=== PATIENT | male | born 1955 | race Caucasian/White ===

== ENCOUNTER → 2018-02-10 10:21 | Outpatient (CLI) | payer OTHER, SELFPAY ==
[2018-02-10 11:13] LABS: Add Manual Diff / Slide Review NO; Basophils Percent Auto 0.7 % (0-2); Eosinophils Percent Auto 0.9 % (2-4); Hematocrit 44.7 % (41-53); Hemoglobin 15.3 g/dL (13.5-17.5); Lymphocytes Percent Auto 15.8 % (25-40); Mean Corpuscular HGB Conc 34.2 % (30-36); Mean Corpuscular Volume 87.6 fL (80-100); Monocytes Percent Auto 7.1 % (3-14); Neutrophils Absolute Auto 7800 /uL (3000-5900); Neutrophils Percent Auto 75.5 % (50-75); Platelet Count 347 X10^3/uL (150-400); Red Cell Distribution Width 13.4 % (11.6-14.8); White Blood Cell Count 10.3 X10^3/uL (4.5-11.0)
[2018-02-10 11:17] LABS: BUN Creatinine Ratio 27.5 (6-22); Blood Urea Nitrogen 22 mg/dL (9-20); Calcium 9.2 mg/dL (8.4-10.2); Carbon Dioxide 27 mmol/L (22-32); Chloride 105 mmol/L (98-107); Estimated Glomerular Filt Rate > 60.0 mL/min (>60); Glucose 157 mg/dL (80-110); HEMOLYSIS < 15 (0-50); Potassium 4.3 mmol/L (3.4-5.1); Sodium 142 mmol/L (137-145)
== END ==
PROVIDERS: Visit Provider Physician Assistant Surgical
DX: Z01.818 Encounter for other preprocedural examination (principal)
CPT/HCPCS: 36415; 80048; 85025; 93005

== ENCOUNTER 2018-02-16 11:46 | Day surgery (SDC) | payer OTHER, SELFPAY ==
[2018-02-11 09:59] VITALS: BMI 26.4
[2018-02-16] VITALS (7 sets, daily range): BP systolic 106–130; BP diastolic 67–86; PULSE 64–74; RESP 10–16; TEMP 36.6–36.7; O2SAT 96–99; BMI 26.4
[2018-02-16] MEDS: LACTATED RINGERS 1,000 ML 42 ML IV (13:51)
[2018-02-16] MEDS: CEFAZOLIN 2 GM/100 ML FROZ.PIGGY IV (13:56)
--- NOTE | 2018-02-16 14:21 | SUR.OPER ---
Supine on padded OR bed, head on pillow, right arm secured on padded arm boards at <90 degrees abduction left arm on arm table under control of surgeon, legs uncrossed, safety belt at thigh, tape over blanket over lower legs.
[2018-02-16] MEDS: BUPIVACAINE 0.25% W/ EPI VIAL 50 ML INJ (14:33)
--- NOTE | 2018-02-16 14:57 | PM.OP.1 ---
Operative Date/Time/Diagnoses Date of procedure: 02/16/18 Time of procedure: 13:57 Pre-op diagnosis: Left septic bursitis Post-op diagnosis: same Procedure & Clinicians Procedure: 1. Left elbow olecranon bursa excision 2. 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 He has been on oral anbitiotics with no improvement. He feels ill and his elbow pain and swelling is causing difficulty performing activity of daily living. After discussing risks and benefits of surgery, patient elected to proceed with surgery treatment. Surgeon: Debra Stratton Click Yes if Unassisted: Yes Anesthesia Type: General Operative Notes Closure Type: primary Specimen(s): none sent Estimated Blood Loss (mL): 5 Blood products transfused: none Tourniquet time (min): 30 Procedure in detail: After patient was consented of risks and benefits of surgery, informed consent was obtained and placed in the chart. Patient was taken to the operating room. Prophylactic antibiotic was given less than half our prior to skin incision. A tourniquet was placed on patient's left upper arm. Patient's left arm was prepped and draped in sterile fashion. Time-out was performed at this time. Patient's left arm was elevated for 1 min the tourniquet was inflated to 250 mm Hg. Marking pen was used to zach out a 2 in incision over the left olecranon. The incision was made from proximal to the olecranon to distal down the arm away from the ulnar aspect of the elbow. Using combination of scalpel and Metzenbaum scissor, the olecranon bursa was dissected and isolated. The bursa was significantly inflated due to the infectious nature. Incision was made over the bursa and significant amount of cloudy yellowish fluid was aspirated from the wound total approximately 150 cc. The culture was taken from the olecranon bursa. The bursa was excised by removing all of its capsule from over the olecranon and from within the soft tissue. At this time was identified the chronically inflamed bursa eroded parts of the olecranon. The structural integrity of the olecranon is still intact after careful inspection. Leksell rongeur and curette was used to debride the wound as well as the olecranon bone. Small portions of unhealthy appearing soft tissue was well as bony tissue was excised from the wound in the process of debridement. After debridement was completed, the wound was irrigated copiously with sterile normal saline. At this time the wound was reinspected. The entire olecranon bursa was excised from the wound. All tissue surface was healthy in appearance. The incision was then closed with 2-0 nylon suture. A sterile dressing was applied the patient's left elbow. The tourniquet was deflated at this time. Patient was woken up from anesthesia and transferred to recovery room in stable condition. Patient tolerated the procedure well and there were no complications estimated blood loss is 5 cc. Complications: none Condition: stable Disposition: same day surgery Plan for aftercare: D/c home
--- NOTE | 2018-02-16 15:51 | SUR.PHASEII ---
Despite being warned that it might be more than the stomach can handle, the patient after taking in two packs of saltenes, felt the need to consume a cheeseburger and fries prior to discharge. He denied nausea and said he felt better. [place] priority load pass given to patient on discharge.
== END 2018-02-16 15:45 | disposition home or self-care (01) ==
PROVIDERS: Visit Provider Orthopaedic Surgery Orthopaedic Surgery of the Spine
PROC: (CPT 24105; principal; 2018-02-16 13:15)
DX: M71.022 Abscess of bursa, left elbow (principal); B95.62 Methicillin resistant Staphylococcus aureus infection as the cause of diseases classified elsewhere
CPT/HCPCS: 24105; 87070; 87075; 87077; 87147; 87186; 87205; J0690; J1100; J2250; J2405; J2704; J3010

== ENCOUNTER 2018-06-25 14:24 | Day surgery (SDC) | payer OTHER, SELFPAY ==
[2018-06-17 14:40] VITALS: BMI 26.4
[2018-06-25] VITALS (7 sets, daily range): BP systolic 104–128; BP diastolic 64–82; PULSE 62–75; RESP 14–18; TEMP 36.4–36.8; O2SAT 95–100; BMI 26.2
[2018-06-25] MEDS: LACTATED RINGERS 1,000 ML 42 ML IV (15:15)
--- NOTE | 2018-06-25 15:51 | PM.PREOP ---
Pre-operative Note Interval Note History & Physical reviewed/Exam performed by Physician: Yes Changes to H&P: No
[2018-06-25] MEDS: CEFAZOLIN 2 GM/100 ML FROZ.PIGGY IV (15:55)
--- NOTE | 2018-06-25 16:01 | P.OP_ITS ---
Operative Date/Time/Diagnoses Date of procedure: 06/25/18 Pre-op diagnosis: 1. Left olecranon bursa drainage after previous surgical excision Post-op diagnosis: same Procedure & Clinicians Procedure: 1. Left olecranon repeat excision 2. Left elbow irrigation and debridement of skin, muscle, tendon and bone Same procedure as scheduled: Yes Indications: Mr. Calzada is here for persisting clear yellow drainage from his left elbow post previous septic bursa excision from his left olecranon. He has been having over 1 month of clear yellow drainage from a pin hole size skin defect over his left olecranon. There is no erythema, no flucturance. I was able to express waxy semi-solid material from his wound when I examined him last time in clinic. He is scheduled for repeat I&D and repeat excision of his olecranon bursa. Surgeon: Debra Stratton Movie Projectionist: Giovanna Meeks Click Yes if Unassisted: No Anesthesia Type: General Operative Notes Closure Type: primary Estimated Blood Loss (mL): 10 Blood products transfused: none Procedure in detail: Patient was seen in the preoperative area. Risks and benefits of the surgery was discussed with the patient. Informed consent was obtained from the patient and placed in the chart. Surgical site was marked. Patient was taken to the operative room. General anesthesia was administered. Prophylactic antibiotic was given to the patient less than 30 min before the incision was made. Patient was placed into a supineposition on the operating table. A tourniquet was placed on patient's left upper arm. Patient's left arm was then prepped and draped in a sterile fashion. Time-out was performed at this time. Patient's left arm was elevated and tourniquet was inflated to 250 mmHg. Patient 's previously made incision was used again to perform the irrigation and debridement. Dissection was made down to the level of the olecranon. There is combination of inflammatory tissue along with scar tissue in the bed of previous surgery. No purulent material was encountered. The wound was cultured using swabs. Some unhealthy tissue along with scar tissue was excised using scalpel and pickup. The olecranon bone where the bursa was resting upon was debrided using a curette to free up any scar tissue which was excised and removed from the wound. The small pinhole where the drainage has been coming from was excised from the skin. The wound was irrigated copiously with sterile normal saline. The wound was reclosed using 2-0 PDS suture and 3-0 nylon suture. Patient's wound was then placed into a sterile dressing. Tourniquet was then deflated at this time. Complications: none Condition: stable Disposition: same day surgery Plan for aftercare: Discharge to home
--- NOTE | 2018-06-25 16:27 | SUR.OPER ---
Supine on padded OR bed, head on pillow, non operative arm secured on padded arm boards at <90 degrees abduction, operative arm draped free on arm table, legs uncrossed, safety belt at thigh, tape over blanket over lower legs.
[2018-06-25] MEDS: BUPIVACAINE 0.5% (PF) VIAL 3 ML INJ (16:39)
== END 2018-06-25 17:30 | disposition home or self-care (01) ==
PROVIDERS: PCP Family Medicine Geriatric Medicine; Visit Provider Orthopaedic Surgery Orthopaedic Surgery of the Spine
PROC: (CPT 11044; principal; 2018-06-25 16:15)
DX: M71.022 Abscess of bursa, left elbow (principal); Y93.H9 Activity, other involving exterior property and land maintenance, building and construction; W45.0XXA Nail entering through skin, initial encounter
CPT/HCPCS: 11044; 87070; 87075; 87077; 87186; 87205; J0690; J1100; J2704

== ENCOUNTER → 2018-09-10 19:36 | Outpatient (REF) | payer OTHER, SELFPAY ==
[2018-09-10 20:04] LABS: Add Manual Diff / Slide Review NO; Basophils Absolute Auto 100 /uL (0-100); Basophils Percent Auto 0.6 % (0-2); Eosinophils Absolute Auto 200 /uL (0-450); Eosinophils Percent Auto 1.8 % (2-4); Hematocrit 42.8 % (41-53); Hemoglobin 14.3 g/dL (13.5-17.5); Lymphocytes Absolute Auto 1300 /uL (1100-4500); Lymphocytes Percent Auto 12.4 % (25-40); Mean Corpuscular HGB Conc 33.5 % (30-36); Mean Corpuscular Hemoglobin 29.2 PG (26-34); Mean Corpuscular Volume 87.2 fL (80-100); Monocytes Absolute Auto 900 /uL (0-900); Monocytes Percent Auto 8.3 % (3-14); Neutrophils Absolute Auto 8300 /uL (1500-7000); Neutrophils Percent Auto 76.9 % (50-75); Platelet Count 285 X10^3/uL (150-400); Red Blood Cell Count 4.91 X10^6/uL (4.5-5.9); Red Cell Distribution Width 14.2 % (11.6-14.8); White Blood Cell Count 10.8 X10^3/uL (4.5-11.0)
[2018-09-10 20:05] LABS: Carbon Dioxide 26 mmol/L (22-32); Chloride 106 mmol/L (98-107); HEMOLYSIS < 15 (0-50); Potassium 4.8 mmol/L (3.4-5.1); Sodium 140 mmol/L (137-145)
== END ==
LOC: LAB 19:36
PROVIDERS: PCP Family Medicine Geriatric Medicine; Visit Provider Family Medicine Geriatric Medicine
DX: Z01.812 Encounter for preprocedural laboratory examination (principal); M17.12 Unilateral primary osteoarthritis, left knee
CPT/HCPCS: 36415; 80051; 85025

== ENCOUNTER 2018-09-30 11:50 | Inpatient (IN) | payer OTHER, SELFPAY ==
[2018-09-25 06:59] VITALS: BMI 27.0
[2018-09-30] VITALS (10 sets, daily range): BP systolic 109–151; BP diastolic 66–92; PULSE 15–78; RESP 14–68; TEMP 36.1–36.7; O2SAT 97–99; BMI 27.0
--- NOTE | 2018-09-30 06:00 | DI.RAD.S_ITS ---
PROCEDURE: XR KNEE LT 1TO2V INDICATIONS: prosthesis placement TECHNIQUE: 2 views of the knee acquired. COMPARISON: None. FINDINGS: Bones: Patient is status post knee joint arthroplasty. Hardware components are in expected positions. Visualized bony structures are intact. Soft tissues: Overlying postoperative changes are noted. IMPRESSION: 1. Expected postsurgical changes status post left knee arthroplasty. Dictated by: Edmond Sun M.D. on 09/30/2018 at 17:04 Approved by: Edmond Sun M.D. on 09/30/2018 at 17:05
[2018-09-30] MEDS: ACETAMINOPHEN 325 MG TABLET 975 MG PO ×2 (12:40→20:02)
[2018-09-30] MEDS: CELECOXIB 200 MG CAPSULE PO (12:41)
[2018-09-30] MEDS: PREGABALIN 75 MG CAPSULE PO (12:41)
[2018-09-30] MEDS: LACTATED RINGERS 1,000 ML 42 ML IV ×2 (12:46→14:45)
[2018-09-30] MEDS: fentaNYL 100 MCG/2 ML INJ 50 MCG IV (13:04)
--- NOTE | 2018-09-30 13:12 | SUR.PREOP ---
Block start time [1253 . Monitoring initiated and maintained throughout procedure. Oxygen and medications given per anesthesiologist instructions. Patient remained stable throughout procedure, no adverse reactions noted. Block end time [1301].
[2018-09-30] MEDS: MIDAZOLAM 2 MG/2 ML VIAL IV (13:20)
--- NOTE | 2018-09-30 13:38 | PM.PREOP ---
Pre-operative Note Interval Note History & Physical reviewed/Exam performed by Physician: Yes Changes to H&P: No
--- NOTE | 2018-09-30 13:38 | PM.OP.1 ---
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 The nature of the procedure including the risks and benefits, alternatives, postoperative course and expected outcome were discussed and all questions answered. Consent was obtained. Operative site confirmed and marked. 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 The medial compartment implant was intact with no loosening or significant polyethylene wear. The bone quality was excellent. The knee could be revised with a primary implant. Closure Type: primary Specimen(s): none sent Prosthetic devices, grafts, tissues, transplants, or devices: Dilip Persona TKA 11 CR femoral component, G stemmed tibial component, 11 polyethylene tray and 35 mm all poly patella. Applied: implant(s) Estimated Blood Loss (mL): 75 Blood products transfused: none Tourniquet time (min): 50 Procedure in detail: The patient was taken to the operative suite and placed under spinal anesthesia with an adductor nerve block. The patient was given prophylactic antibiotics prior to surgery. The patient was also given tranexamic acid, 1 g, just prior to surgery for postoperative hemostasis. The lateral knee was prepped and the joint injected with 20 mL of 1% Lidocaine with epinephrine. The knee was then prepped and draped in usual sterile fashion. The leg was exsanguinated with an Esmarch dressing and the tourniquet raised to 250 torr. A 15 cm anterior incision was made. Next a medial trivector arthrotomy was made. The extensor mechanism was marked to ensure accurate repair. Initial exposing dissection was carried out medially and laterally. The knee was then extended and the patellar thickness was measured and a cut made removing approximately 9 mm of bone. The patella was then sized and drilled. Some excess lateral bone was excised and the patellofemoral ligament released. The knee was then flexed and the intramedullary femoral guide andra placed. The distal femoral cut was made in 5 ? of valgus at the +0 position around the medial femoral prosthesis. The medial prosthesis was then loosened with an osteotome and removed with no bone loss. The femoral size was measured and the appropriate cutting block was then placed and the anterior, posterior and chamfer cuts made. These cuts all went through bone with no deficits from the previous arthroplasty. The tibial component was then loosened with osteotomes and removed with no bone loss. The extra medullary tibial alignment andra was then placed along the anatomic axis of the tibia approximating the normal slope. The guide was set to remove approximately 11 mm from the less affected lateral side. The proximal tibial cut was then made with an oscillating saw. The cut would completely through virgin bone with no deficits from the previous arthroplasty. All meniscus and bony debris was then removed. Flexion extension gaps were checked. No specific balancing was required other than routine removal of osteophytes. The soft tissues were then injected with a combination of 20 mL of half percent Marcaine with epinephrine and 20 mL of Exparel. The trial components were then placed. The knee went into full extension and flexion beyond 120?. There was excellent medial- lateral balance throughout motion. Patellar tracking was excellent. The trial components were removed and the knee was cleansed with Pulsavac irrigation and dried. The final components were cemented in with high viscosity vacuum mixed bone cement with antibiotics. The knee was held in extension and the patellar clamp until the cement had adequately cured. The knee was irrigated and inspected for any further debris. The knee was then irrigated with dilute Betadine solution. The extensor mechanism was closed with 5 interrupted #1 Vicryl sutures in 90 degrees of flexion. The joint was then injected with a combination of 1 g of tranexamic acid and 20 mL of quarter percent Marcaine with epinephrine. The subcutaneous tissue was closed with 2-0 Vicryl. The skin was closed with mary and surgical adhesive. An Aquacell dressing and Wily wrap were then applied. The patient tolerated the procedure well and was returned to recovery room in good condition. Complications: none Condition: stable Disposition: PACU Plan for aftercare: [facility] protocol for total knee arthroplasty.
[2018-09-30] MEDS: CEFAZOLIN 2 GM/100 ML FROZ.PIGGY IV ×2 (13:50→22:01)
--- NOTE | 2018-09-30 14:30 | SUR.OPER ---
Supine on padded OR bed. Pillow under head, arms secured on padded armboards <90 degree abduction. Safety belt across torso. Non-operative leg secured with tape over blanket over lower leg. Operative leg secured in [place] positioner. Foam padded brace at thigh of operative leg.
[2018-09-30] MEDS: BUPIVACAINE 0.25% W/ EPI (PF) 20 ML, TRANEXAMIC ACID 1,000 MG, SODIUM CHLORIDE 0.9% 10 ML INJ (14:35)
[2018-09-30] MEDS: TRANEXAMIC ACID 1,000 MG VIAL 1000 MG INJ (14:36)
[2018-09-30] MEDS: BUPIVACAINE 0.25% W/ EPI (PF) 40 ML, BUPIVACAINE LIPOSOME 266 MG, SODIUM CHLORIDE 0.9% ... INJ (14:36)
[2018-09-30] MEDS: LIDOCAINE 1% W/EPI INJ 20 ML INJ (14:37)
[2018-09-30] MEDS: POVIDONE-IODINE 15 ML, SODIUM CHLORIDE 0.9% 250 ML TOP (14:37)
[2018-09-30] MEDS: OXYCODONE IR 5 MG TABLET PO ×3 (17:15→23:11)
[2018-09-30] MEDS: LACTATED RINGERS 1,000 ML 125 ML IV (17:15)
[2018-09-30] MEDS: HYDROMORPHONE 0.5 MG INJ IV ×3 (17:51→21:46)
[2018-09-30] MEDS: ASPIRIN EC 81 MG TABLET PO (20:03)
[2018-10-01] VITALS: BP 118/68; PULSE 71; RESP 18; TEMP 36.1; O2SAT 97
[2018-10-01] MEDS: HYDROMORPHONE 0.5 MG INJ IV ×2 (00:21→05:00)
[2018-10-01] MEDS: LACTATED RINGERS 1,000 ML 125 ML IV (01:55)
[2018-10-01] MEDS: OXYCODONE IR 5 MG TABLET PO ×2 (03:59→06:59)
[2018-10-01 04:23] VITALS: BP 115/67; PULSE 68; RESP 18; TEMP 36.6; O2SAT 96
[2018-10-01] MEDS: CEFAZOLIN 2 GM/100 ML FROZ.PIGGY IV (05:05)
--- NOTE | 2018-10-01 05:55 | PC.NURSE ---
Assumed care of pt at 2300 on 09/30/18. Pt awake resting in bed during bedside hand-off. A/O, anxious, and forgetful at times; repeats questions and comments. Drsg with magen wrap c/d/i. CMS+. Ice packs to knee. Analgesics per mar. IVF infusing per orders. Calling appropriately for needs. Bed alarm on for high fall risk. Able to reposition independently in bed.
[2018-10-01 07:25] LABS: Hematocrit 39.6 % (41-53)
[2018-10-01 07:57] VITALS: BP 134/78; PULSE 74; RESP 20; TEMP 37; O2SAT 98
[2018-10-01] MEDS: MELOXICAM 7.5 MG TABLET 15 MG PO (08:20)
[2018-10-01] MEDS: ASPIRIN EC 81 MG TABLET PO ×2 (08:21→20:32)
[2018-10-01] MEDS: ACETAMINOPHEN 325 MG TABLET 975 MG PO ×3 (08:22→20:32)
--- NOTE | 2018-10-01 08:33 | PC.NURSE ---
Addendum entered by Catalina Alcantara R.N. 10/01/18 13:58: Pt given 2 dialaudid and helfpul for discomfort. back and pt is resting in bed. Original Note: 0800- Assess- Pt is A&Ox3, Dressing to L.knee is cdi and pt has good movement to extremity. He was given 1 oxycodone at 0700. Pt has been complaining of discomfort all the through the night and has been given oxycodone with 0.5mg of iv dilaudid. Apparently this combination of medication is not covering his pain management. This RN went and talked to JAZMYNE Taylor and asked for po dilaudid to help pts pain control. It will be every 4 hours and we will start this new medication around 0900, as pt was just given 1 oxycodone at 0700. He is asking for vistaril as well, stating that he is having some issues with cramps. Will ask JAZMYNE Crowder about this and see if she will order some vistaril. Pt is forgetful with limitations and repeats himself a lot asking the same questions. We have been very clear about his plan and what he will be getting regarding his pain issues. He states that he is in 9/10 pain. Given his tylenol and meloxicam, is at bedside. Pt only focusing on his pain at this time, will try and do others measures as ice packs, reposition, and distraction techniques as conversing with patient.
[2018-10-01] MEDS: ONDANSETRON 4 MG ODT PO (08:56)
[2018-10-01] MEDS: HYDROMORPHONE 2 MG TABLET 4 MG PO ×4 (09:01→21:18)
--- NOTE | 2018-10-01 10:54 | PT.IIE ---
Current Diagnoses Presence of left artificial knee joint (09/30/18) Surgery Performed Operation Date: 09/30/18 13:00 Actual Procedures p Uni to Total Knee Arthroplasty Revision(Left) - Edmond Hernandez MD Surgical History (Last Updated 09/25/18 @ 07:37 by Kady Cortes RN) History of incision and drainage (Acute 06/25/18) History of arthroplasty of right knee (Acute) History of incision and drainage (Acute 02/16/18) S/P left unicompartmental knee replacement (Acute ~2014) Medical History (Last Updated 09/25/18 @ 07:35 by Kady Cortes RN) Splinter (Acute ~12/2017) MRSA (methicillin resistant staph aureus) culture positive (Acute ~12/2017) Osteoarthritis (Acute) Physical Therapy Inpatient Evaluation/Re-Eval M1 PT/OT-IP Prior Functional Status Start: 10/01/18 10:24 Freq: NEEDED Status: Active Protocol: Document 10/01/18 09:45 (Rec: 10/01/18 10:53 [email or web address]) Medical Review Prior Functional Status Medical History Reviewed Yes Diet/Fluid Consistency Regular Communication No deficits noted. Able to make needs known. Mobility and Gait Pt states he was independent for all mobility and gait. Activities of Daily Living and IADL's Independent for all ADLs and IADLs Social History Household Members spouse Living Arrangements House Number of Floors (Floors) Two Floors Number of Stairs To Enter/Railing? 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 He primarily stays on [facility] with bathroom and bedroom access. 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 He had a R TKA and a L partial knee replacement prior. He states he used crutches before so he could get onto the train easier. M2 PT-IP Current Condition Start: 10/01/18 10:24 Freq: NEEDED Status: Active Protocol: Document 10/01/18 09:45 HH (Rec: 10/01/18 10:53 [email or web address]) Physical Therapy Current Condition Current Condition Evaluation Date 10/01/18 Treatment Diagnosis revision of L TKA, imparied gait and activity tolerance. Onset Date 09/30/18 Weight Bearing Status Weight Bearing Status Weight Bear as Tolerated M3 PT-IP Subjective Start: 10/01/18 10:24 Freq: NEEDED Status: Active Protocol: Document 10/01/18 09:45 (Rec: 10/01/18 10:53 [id number]) Subjective Physical Therapy Visit Type Type Initial Evaluation Visit Start Time 09:45 Visit Stop Time 10:25 Total Visit Minutes 40 Notes Per RN Catalina, pt has been acting very impulsive, forgetful with limitations and repeats himself a lot asking the same questions. His primary focus is his pain who rated 9/10 at all times. He was given Dilaudid 45 mins before IE. 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 Im now at a 4/5 Patient Goals To return home. Therapy Pain Assessment Pain When Pain Assessed During Mobility Pain Present Pain Present Pain Reported Location Left Knee Intensity 5 Scale Used Numeric (1 - 10) Description Acute Pain Behaviors Calling Out Pain Management Techniques Modification of Treatment Re-positioning Timing of Activity with Medications M4 PT-IP Mobility and Gait Start: 10/01/18 10:24 Freq: NEEDED Status: Active Protocol: Document 10/01/18 09:45 (Rec: 10/01/18 10:53 [id number]) PT-Bed Mobility Assessment Rolling Type of Rolling Roll to Left Level of Assist Independent Supine to Sit Supine to Sit Independent Sit to Supine Sit to Supine Independent Scooting Scooting to Edge of Bed Independent Scooting Up and Down in Bed Independent PT-Transfer Assessment Sit to and From Stand Sit to and from Stand Contact Guard Assistance Equipment Transfer Assistive Device Gait Belt Orthotic/Prosthetic Devices or Brace: No Transfers Transfer Destination Bed Transfer Technique Stand Step Pivot Transfer Ability Level of Assist Contact Guard Assistance Comments Mobility Comments Pt stood up multiple times from bed with FWW/ crutches with CGA. Pt is very impulsive and does not like to follow commands. Pt insisted he was unable to put weight on LLE/ keep his LLE straight but apparently he also tried to single leg stance/single leg squat with UE support on FWW. He did leave his FWW couple times and stood on his RLE without telling him to do so. Had to stop pt multiple times regarding his unpredicatable behaviors which increase his risk of injury. He also lost his balance and fell backward to bed with his first attempt of using crutches to stand. Gait Assessment Gait Gait Assistance Required: Contact Guard Assist Distance (Feet) 10 Able to Maintain Weight Bearing Status Yes During Gait Assistive Devices Assistive Device Gait Belt Front Wheeled Walker Orthotic/Prosthetic Devices or Brace: No Gait Deviations General Gait Pattern Antalgic Decreased Stride Length Decreased Feet Clearance Step-to Gait Factors Limiting Gait Function Factors Limiting Gait Function Decreased Activity Tolerance Difficulty Following Directions Limited Range of Motion Pain Comments Gait Comments Pt requested and attempted to use crutches but he did not WB on his LLE due to pain. Recommended pt to use FWW to initiate partial WB but he consistently refused and stated Im good with the crutches. Pt tried amb with FWW with toe touch WB but he also did couple dips push up on FWW suddenly while ambulation. Pt got agitated after recommending him not to leave his walker alone a few times. Transferred pt back to bed after and did not leave crutches in his room. Stair Climbing Assessment Comments Stair Climbing Comments did not attempt due to pt's impulsive behaviors PT-Balance Assessment Sitting Balance and Reactions Static Sitting Balance Ability Normal Dynamic Sitting Balance Ability Normal Standing Balance and Reactions Static Standing Balance Ability Good Dynamic Standing Balance Ability Good Device Used FWW M5 PT-IP Objective Assessments Start: 10/01/18 10:24 Freq: NEEDED Status: Active Protocol: Document 10/01/18 09:45 (Rec: 10/01/18 10:53 [email or web address]) Orientation Orientation/Cognition Orientation Name Age Birthday Month Date Year Day of Week Place Situation Language Function Ability No Deficits Noted Safety Awareness Decreased Safety Awareness Memory Description Short Term Impaired Comments Pt is forgetful with limitations and repeats himself a lot asking the same questions. Gross Range of Motion Upper Extremity ROM Assessment Within Functional Limits Lower Extremity ROM Assessment Left Impaired Impairments 15-85 degrees of knee AROM Strength Upper Extremity Strength Assessment Within Functional Limits Lower Extremity Strength Assessment Left Impaired Knee 3/5 Coordination Assessment Gross Coordination Gross Coordination WNL Sensation Assessment Sensation Gross Sensation WNL Light Touch Intact Proprioception (Position) Intact Muscle Tone Muscle Tone WNL Yes M6 PT-IP Treatment Start: 10/01/18 10:24 Freq: NEEDED Status: Active Protocol: Document 10/01/18 09:45 (Rec: 10/01/18 10:53 [id number]) Physical Therapy Treatment Exercises Exercises Ankle Pumps Gluteal Sets Quad Sets Heel Slides Straight Leg Raises Education Education Provided Precautions Weight Bearing Status Post-Op Packet Safety M7 PT-IP Assessment and Plan Start: 10/01/18 10:24 Freq: NEEDED Status: Active Protocol: Document 10/01/18 09:45 HH (Rec: 10/01/18 10:53 HH [id number]) PT Summary Assessment and Plan Potential Rehabilitation Potential Good Status of Condition at Evaluation Stable Summary Impairments Pain ROM Strength Balance Cognition Bed Mobility Transfers Gait Activity Tolerance Assessment Summary Pt is very impulsive, forgetful and repeats himself a lot asking the same questions during assessment. Pt insisted to use crutches for mobility but apparently he amb without WB on LLE with a swing through gait for few feet. He then lost his balance at bedside during stand to sit and fell backward to bed. Pt denies he lost his balance, instead that's how i sit down. He also left his FWW multiple times to side and did single leg partial squat on LLE/ dip push up with UE support on FWW. Had to stop him couple times and redirect his attention and current task . Pt currently is very poor safety awareness overall and has difficult time to WB on his L knee. Will practice crutches only if PT presents. Notified RN regarding his status. Will cont assess his overall mobility and safety awareness in order to decide his d/c plan. But expect pt will be d/c home with his and outpatient PT to improve mobility once he is medically stable and able to clear rehab goals. Goals Bed Mobility Goal Independent Transfer Goal Independent Crutches Front Wheeled Walker Gait Goal Independent Crutches Front Wheel Walker Gait Distance 200 Other Goals climb 10 steps with R rail independently Days to Meet Goals 5 Frequency of Treatment Frequency Of Treatment Twice a Day Treatment Plan Physical Therapy Treatment Plan Bed Mobility Training Transfer Training Gait Training Therapeutic Exercise Balance Retraining Post Op Education Discharge Planning Hot or Cold Pack Other Recommendations and Next Treatment transfer and gait training, Focus stair climbing as ceasar use crutches if appropriate Recommendations To Nursing Amount of Assist Needed 1 Person Assist Discharge Recommendations PT Discharge Recommendations Home with Assistance Outpatient PT Other Discharge Recommendations Will cont assess his overall mobility and safety awareness in order to decide his d/c plan. But expect pt will be d/ c home with his and outpatient PT to improve mobility once he is medically stable and able to clear rehab goals. Equipment Needed for Home Before crutches Discharge
[2018-10-01] MEDS: hydrOXYzine pamoate 25 MG CAPSULE PO ×2 (11:03→17:23)
--- NOTE | 2018-10-01 11:05 | P.PN_ITS ---
Subjective Date Patient Seen: 10/01/18 Interval history: Patient is seen bedside status post left Uni compartment knee revision to total knee replacement. Patient is postop day 1. Over night he was having difficulty with pain control however he is now comfortable on oral Dilaudid. We discussed pain management and realistic expectations of pain after surgery. He denies chest pain shortness of breath and calf pain. Exam Vital Signs (past 8 hours): - 10/01/18 04:23 10/01/18 07:57 Temperature 97.9 F 98.6 F Pulse Rate 68 74 Respiratory Rate 18 20 Blood Pressure 115/67 134/78 Pulse Oximetry 96 98 Fraction of Inspired Oxygen 21 Oxygen Delivery Method Room Air Oxygen Flow Rate 0 Narrative Exam Narrative: Well-developed, well-nourished, no acute distress. Alert and oriented to person, place, and time. Dressing on operative knee is clean, dry, a nd intact with no signs of drainage. Minimal erythema and generalized swelling around the surgical site. Neurovascularly intact in operative extremity with a soft and compressible calf. Range of motion of the operative ankle intact. Objective Labs Result Diagrams: 10/01/18 06:35 Labs: Laboratory Results - last 24 hr 10/01/18 06:35 Hgb 13.0 L Hct 39.6 L Assessment & Plan Post-op Postoperative Procedures Operation Date: 09/30/18 13:00 Actual Procedures Side Surgeon p Uni to Total Knee Arthroplasty Revision Left Edmond Hernandez MD 1. Postop day 1. Status post above procedure-continue with PT, pain control. Discharge home tomorrow. Add Vistaril to help with muscle spasms and pain. Quality VTE Deep Vein Thrombosis/Pulmonary Embolism Present on Admission: No
--- NOTE | 2018-10-01 11:19 | PC.NURSE ---
Patient A+xo x4 per baseline, pleasant although sligthly nervous affect. Left leg has good C,M,S. Dsg is C,D,I. A-febrile. C/o of pain this am unrelived by current medications, states terrible night sleep. Observed body position with knee bent in poor alignment, alerted patient to maintain correct position with education/instruction given to this. Multiple unsafe transfer, education given as well as bed alarm has been in place, he continues to need reinforcement of safety discussions. Primary RN spoke with MD regarding pain control, updated orders for PRN po dilauded Q4, updated patient to POC, in agreement at this time. He continues to be nervous after dilaudid administration, he is perseverating on discharge planning, SW spoke with patient, as well as MD again. New order for vistaril, patient seems content with the updated POC.
[2018-10-01 12:14] VITALS: BP 150/64; PULSE 60; RESP 18; TEMP 37; O2SAT 99
--- NOTE | 2018-10-01 14:28 | CM.IDA ---
Initial DCP Assessment Note: Pt is a 63 yo male, resident of [place]. Pt is POD#1 from knee surgery w/ Dr Hernandez. PCP: Dr Antonio Shine Payer: Saji Met w/pt this morning to introduce role and review DCP. Pt explains that he will need to remain in the hospital for two nights in order to get his pain under control, he will then go home w/spouse to assist. Pt explains he had knee surgery 10 years ago on his other knee so I know what I'm experiencing. Spouse Genoveva is at bedside and does not say anything during our conversation, she is quilting at bedside. This PLASTICS SCIENTIST strongly encouraged pt, multiple times, to discuss his concerns about LOS w/Ortho PA and/or Ortho surgeon. Pt agrees to do this. RN Catalina and student nurse joined us and pt again states concern about necessary length of stay; both this PLASTICS SCIENTIST and RN encourage pt to review his concern w/Ortho PA and pt agreeable. PT Rec=home w/spouse and outpt PT P: DC home w/spouse to assist w/outpt PT. NEGAR Shepherd Discharge Planning/Care Management CM Discharge Assessment Start: 10/01/18 14:25 Freq: Status: Active Protocol: Document 10/01/18 14:26 DISHA (Rec: 10/01/18 14:28 DISHA [id number]) Discharge Planning Assessment Assigned Life Science Taxonomist NEGAR Rutherford DPOA/Assigned Designee Name Genoveva Calzada, spouse Contact Information [phone] Advance Directives? Yes Advance Directives on File No History Provided By Patient Prior Living Arrangements House Household Members spouse Type of transporation used prior to Drives own vehicle admit Independent with ADL's Yes Is patient alert and oriented? Yes Barriers to Discharge No Discharge Plan Home Transportation Arrangement Spouse Referrals Initiated None needed Whiteboard Updated in Patient Room with Yes name and ext. # of Life Science Taxonomist Review Status In Process
--- NOTE | 2018-10-01 14:58 | PT.IPTN ---
Current Diagnoses Presence of left artificial knee joint (09/30/18) Surgery Performed Operation Date: 09/30/18 13:00 Actual Procedures p Uni to Total Knee Arthroplasty Revision(Left) - Edmond Hernandez MD Physical Therapy Treatment Note M2 PT-IP Current Condition Start: 10/01/18 10:24 Freq: NEEDED Status: Active Protocol: Document 10/01/18 09:45 HH (Rec: 10/01/18 10:53 HH [id number]) Physical Therapy Current Condition Current Condition Evaluation Date 10/01/18 Treatment Diagnosis revision of L TKA, imparied gait and activity tolerance. Onset Date 09/30/18 Weight Bearing Status Weight Bearing Status Weight Bear as Tolerated M3 PT-IP Subjective Start: 10/01/18 10:24 Freq: NEEDED Status: Active Protocol: Document 10/01/18 14:19 SA (Rec: 10/01/18 14:58 SA [id number]) Subjective Physical Therapy Visit Type Type Treatment Note Visit Start Time 13:10 Visit Stop Time 13:40 Total Visit Minutes 30 Notes Pt with better pain control this PM. Had pain medication about 20 min ago. Physical Therapy Visit Comments Patient Comments Pt agreeable to PT this afternoon, states he has been doing knee exercises in bed for 2 hours and that he feels much better. Patient Goals To return home. Therapy Pain Assessment Pain When Pain Assessed During Mobility Pain Present Pain Present Pain Reported Location Left Knee Intensity 4 Scale Used Numeric (1 - 10) Description Acute Pain Behaviors Guarding Restlessness Wincing Pain Management Techniques Modification of Treatment Re-positioning Timing of Activity with Medications M4 PT-IP Mobility and Gait Start: 10/01/18 10:24 Freq: NEEDED Status: Active Protocol: Document 10/01/18 14:19 SA (Rec: 10/01/18 14:58 [id number]) PT-Bed Mobility Assessment Rolling Level of Assist Independent Supine to Sit Supine to Sit Independent Sit to Supine Sit to Supine Independent Scooting Scooting to Edge of Bed Independent Scooting Up and Down in Bed Independent PT-Transfer Assessment Sit to and From Stand Sit to and from Stand Contact Guard Assistance Equipment Transfer Assistive Device Gait Belt Front Wheeled Walker Orthotic/Prosthetic Devices or Brace: No Transfers Transfer Destination Bed Transfer Technique Stand Step Pivot Transfer Ability Level of Assist Contact Guard Assistance Comments Mobility Comments Pt very impulsive with mobility and demonstrates poor safety awareness, frequent cues for pacing and safety. IND with bed mobility and CGA with transfers. Gait Assessment Gait Gait Assistance Required: Contact Guard Assist Distance (Feet) 140 Able to Maintain Weight Bearing Status Yes During Gait Assistive Devices Assistive Device Gait Belt Front Wheeled Walker Orthotic/Prosthetic Devices or Brace: No Gait Deviations General Gait Pattern Antalgic Decreased Stride Length Decreased Feet Clearance Step-to Gait Factors Limiting Gait Function Factors Limiting Gait Function Decreased Activity Tolerance Difficulty Following Directions Limited Range of Motion Pain Comments Gait Comments Gait training with FWW in room /davidson with CGA and Mod cues for safety and pacing. Pt able to increase Wbing though LLE but does WB heavily through UEs. Pt tends to ask questions and not listen to answers, not receptive to safety cuing. Stair Climbing Assessment Evaluation Level of Assist On Stairs Contact Guard Assistance Devices Stair Climbing Assistive Devices Front Wheel Walker Technique/Endurance Stair Climbing Direction Ascend and Descend Stair Climbing Technique Step to Step Number of Steps Climbed 1 Query Text: Stair Climbing Set # Repetitions (reps) 3 Comments Stair Climbing Comments Verbal and visual demonstration prior to trial of step ups with clear cues for safety. Pt able to complete 3 reps with CGA and slight increase in knee pain. PT-Balance Assessment Sitting Balance and Reactions Static Sitting Balance Ability Normal Dynamic Sitting Balance Ability Normal M5 PT-IP Objective Assessments Start: 10/01/18 10:24 Freq: NEEDED Status: Active Protocol: Document 10/01/18 09:45 (Rec: 10/01/18 10:53 [id number]) Orientation Orientation/Cognition Orientation Name Age Birthday Month Date Year Day of Week Place Situation Language Function Ability No Deficits Noted Safety Awareness Decreased Safety Awareness Memory Description Short Term Impaired Comments Pt is forgetful with limitations and repeats himself a lot asking the same questions. Gross Range of Motion Upper Extremity ROM Assessment Within Functional Limits Lower Extremity ROM Assessment Left Impaired Impairments 15-85 degrees of knee AROM Strength Upper Extremity Strength Assessment Within Functional Limits Lower Extremity Strength Assessment Left Impaired Knee 3/5 Coordination Assessment Gross Coordination Gross Coordination WNL Sensation Assessment Sensation Gross Sensation WNL Light Touch Intact Proprioception (Position) Intact Muscle Tone Muscle Tone WNL Yes M6 PT-IP Treatment Start: 10/01/18 10:24 Freq: NEEDED Status: Active Protocol: Document 10/01/18 14:19 SA (Rec: 10/01/18 14:58 SA [id number]) Physical Therapy Treatment Exercises Exercises Ankle Pumps Gluteal Sets Quad Sets Heel Slides Straight Leg Raises Education Education Provided Precautions Weight Bearing Status Post-Op Packet Safety Other Treatments Other Treatment Performed Standing postural correction with focused WBing through LLE . M7 PT-IP Assessment and Plan Start: 10/01/18 10:24 Freq: NEEDED Status: Active Protocol: Document 10/01/18 14:19 (Rec: 10/01/18 14:58 [id number]) PT Summary Assessment and Plan Potential Rehabilitation Potential Good Status of Condition at Evaluation Stable Summary Impairments Pain ROM Strength Balance Cognition Bed Mobility Transfers Gait Activity Tolerance Assessment Summary Pt focused on obtaining crutches for d/c home. Explained to pt that PT will assess his mobility at time of d/c and recommend most appropriate and safe device, also stated that at this time the FWW is the best device for him. Frequency of Treatment Frequency Of Treatment Twice a Day Treatment Plan Physical Therapy Treatment Plan Bed Mobility Training Transfer Training Gait Training Therapeutic Exercise Balance Retraining Post Op Education Discharge Planning Hot or Cold Pack Other Recommendations and Next Treatment transfer and gait training, Focus stair climbing as ceasar use crutches if appropriate Recommendations To Nursing Amount of Assist Needed 1 Person Assist Discharge Recommendations PT Discharge Recommendations Home with Assistance Outpatient PT
[2018-10-01 15:45] VITALS: BP 135/81; PULSE 94; RESP 20; TEMP 37.3; O2SAT 98
--- NOTE | 2018-10-01 17:25 | PC.NURSE ---
Addendum entered by Judy Singleton R.N. 10/01/18 21:05: Pt resting at intervals this evening. Dsg remains CDI, Will be med again at 2109 when time pain med. per pt request. Call light w/in reach. Pt refuses the bed alarm and attempts to go to BR on own. Continue w/plan of care. Original Note: Pt awake, assisted to BR Lungs clear, IS to 4000 Dsg to left knee magen wrap/aquacell CDI. Med @ 1715 w/po dialudid and vistaril for c/o pain. HL LAC intact/patent. Stable post op course. Call light w/in reach, pt calls appropriately for assistance.
[2018-10-01 21:15] VITALS: BP 124/92; PULSE 90; RESP 20; TEMP 36.6
[2018-10-02] VITALS: BP 134/60; PULSE 45; RESP 16; TEMP 37.1; O2SAT 98
[2018-10-02] MEDS: HYDROMORPHONE 2 MG TABLET 4 MG PO ×3 (02:11→10:49)
[2018-10-02 02:24] VITALS: PULSE 67
--- NOTE | 2018-10-02 04:06 | PC.NURSE ---
Assumed care of pt at 2300 on 10/01/18. Sleeping during bedside hand-off. Drsg c/d/i. CMS +, Pt calling appropriately for needs; Moderate fall risk. Pt requests bed alarm remain off; At approx 0330 pt gets up on own and ambulates to bathroom. This account underwriter reminded pt to call staff for SBA for safety. Pt returned to bed. Bed alarm placed on. Call light within reach.
[2018-10-02 05:00] VITALS: BP 138/85; PULSE 62; RESP 16; TEMP 36.8; O2SAT 96
[2018-10-02 07:45] VITALS: BP 142/81; PULSE 80; RESP 18; TEMP 36.8; O2SAT 98
[2018-10-02] MEDS: ACETAMINOPHEN 325 MG TABLET 975 MG PO (08:15)
[2018-10-02] MEDS: MELOXICAM 7.5 MG TABLET 15 MG PO (08:16)
[2018-10-02] MEDS: ASPIRIN EC 81 MG TABLET PO (08:16)
--- NOTE | 2018-10-02 08:19 | PM.DS.1 ---
History of Present Illness Date Patient Seen: 10/02/18 Time Patient Seen: 08:19 Chief complaint: [id number] Narrative: 63 year old male who is POD#2 s/p left total knee arthroplasty with Dr. Hernandez. His pain has been well controlled since switching to Dilaudid. He has been mobilizing with PT. He denies any chest pain, shortness of breath. Discharge Providers Date of admission: 09/30/18 11:50 Discharge Date: 10/02/18 Primary care physician: Nicholas Shine MD Consults: 09/30/18 16:51 Consult to Discharge Planning Routine Comment: Consult to Physical Therapy Evaluate & Treat Comment: Physician Instructions: postop TKA protocol Consult to Respiratory Therapy Evaluate & Treat Comment: Physician Instructions: Evaluate and treat Discharge provider: Elsie Miner PA-C Summary Discharge Diagnosis: s/p left knee arthroplasty Hospital Course: After obtaining informed consent the patient was brought to the operating room for a left total knee arthroplasty with Dr. Hernandez on 09/30/18. He has been progressing well in the post operative period. His pain was initially not well controlled and was switched to Dilaudid which has been working well. He has been mobilizing well with physical therapy in the room and in the halls. 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 He has a supply of all medications at home except Dilaudid which was prescribed to him at discharge. Status at Discharge Cognitive/behavioral status at discharge: oriented Functional status at discharge: uses cane/walker Overall status at discharge: patient is progressing back to baseline Exam Vital Signs (past 8 hours): - 10/02/18 02:24 10/02/18 05:00 10/02/18 07:45 Temperature 98.2 F 98.3 F Pulse Rate 67 62 80 Respiratory Rate 16 18 Blood Pressure 138/85 142/81 H Pulse Oximetry 96 98 Fraction of Inspired Oxygen 21 Oxygen Delivery Method Room Air Oxygen Flow Rate 0 Narrative Exam Narrative: 63 year old male resting in chair, in no acute distress. Alert and oriented. Aquacel dressing in place over left knee is clean, dry, and intact. Able to dorsiflex/plantar flex the ankle. Good distal densation and 2+ distal pulses. Objective Labs Result Diagrams: 10/01/18 06:35 Discharge Plan Discharge Plan Patient Disposition: Home Discharge Med Rec/Prescriptions Prescriptions: New acetaminophen 325 mg Tablet 975 mg PO TID Qty: 60 RF: 0 aspirin 81 mg Tablet,Delayed Release (Dr/Ec) 81 mg PO BID Qty: 60 RF: 0 meloxicam [Mobic] 7.5 mg Tablet 15 mg PO 0800 Qty: 60 RF: 0 hydromorphone 2 mg Tablet 2 mg PO Q4H PRN (Reason: severe pain) Qty: 45 RF: 0 hydroxyzine pamoate 25 mg Capsule 25 mg PO Q4HR PRN (Reason: Nausea) Qty: 60 RF: 0 Follow up/Referrals: Edmond Hernandez MD [Physician] - Provider Discharge Instructions Diet: Diet as Tolerated Activity: Weight bear as tolerated Cold/Heat Therapy: Ice packs as needed Other treatments: Follow Sandritapath guide Skin/Wound/Dressing Care Report to your healthcare provider any signs of infection, such as:: chills, fever, night sweats, unusual drainage and unusual redness Dressing: Leave Aquacel dressing in place, it will be removed at two week post operative visit. OK to shower but not to soak. Visit Report/Discharge Packet Instructions: DI for Knee Replacement Discharge Data Primary Care Provider: Nicholas Shine Attending Provider: Edmond Hernandez Admit Date/Time: 09/30/18 11:50 Quality VTE Deep Vein Thrombosis/Pulmonary Embolism Present on Admission: No
--- NOTE | 2018-10-02 08:25 | P.DS_ITS ---
History of Present Illness Date Patient Seen: 10/02/18 Time Patient Seen: 08:19 Chief complaint: [id number] Narrative: 63 year old male who is POD#2 s/p left total knee arthroplasty with Dr. Hernandez. His pain has been well controlled since switching to Dilaudid. He has been mobilizing with PT. He denies any chest pain, shortness of breath. Discharge Providers Date of admission: 09/30/18 11:50 Discharge Date: 10/02/18 Primary care physician: Nicholas Shine MD Consults: 09/30/18 16:51 Consult to Discharge Planning Routine Comment: Consult to Physical Therapy Evaluate & Treat Comment: Physician Instructions: postop TKA protocol Consult to Respiratory Therapy Evaluate & Treat Comment: Physician Instructions: Evaluate and treat Discharge provider: Elsie Miner PA-C Summary Discharge Diagnosis: s/p left knee arthroplasty Hospital Course: After obtaining informed consent the patient was brought to the operating room for a left total knee arthroplasty with Dr. Hernandez on 09/30/18. He has been progressing well in the post operative period. His pain was initially not well controlled and was switched to Dilaudid which has been working well. He has been mobilizing well with physical therapy in the room and in the halls. He has good support at home and his will be ldr nurse. He has a supply of all medications at home except Dilaudid which was prescribed to him at discharge. Status at Discharge Cognitive/behavioral status at discharge: oriented Functional status at discharge: uses cane/walker Overall status at discharge: patient is progressing back to baseline Exam Vital Signs (past 8 hours): - 10/02/18 02:24 10/02/18 05:00 10/02/18 07:45 Temperature 98.2 F 98.3 F Pulse Rate 67 62 80 Respiratory Rate 16 18 Blood Pressure 138/85 142/81 H Pulse Oximetry 96 98 Fraction of Inspired Oxygen 21 Oxygen Delivery Method Room Air Oxygen Flow Rate 0 Narrative Exam Narrative: 63 year old male resting in chair, in no acute distress. Alert and oriented. Aquacel dressing in place over left knee is clean, dry, and intact. Able to dorsiflex/plantar flex the ankle. Good distal densation and 2+ distal pulses. Objective Labs Result Diagrams: 10/01/18 06:35 Discharge Plan Discharge Plan Patient Disposition: Home Discharge Med Rec/Prescriptions Prescriptions: New acetaminophen 325 mg Tablet 975 mg PO TID Qty: 60 RF: 0 aspirin 81 mg Tablet,Delayed Release (Dr/Ec) 81 mg PO BID Qty: 60 RF: 0 meloxicam [Mobic] 7.5 mg Tablet 15 mg PO 0800 Qty: 60 RF: 0 hydromorphone 2 mg Tablet 2 mg PO Q4H PRN (Reason: severe pain) Qty: 45 RF: 0 hydroxyzine pamoate 25 mg Capsule 25 mg PO Q4HR PRN (Reason: Nausea) Qty: 60 RF: 0 Follow up/Referrals: Edmond Hernandez MD [Physician] - Provider Discharge Instructions Diet: Diet as Tolerated Activity: Weight bear as tolerated Cold/Heat Therapy: Ice packs as needed Other treatments: Follow Sandritapath guide Skin/Wound/Dressing Care Report to your healthcare provider any signs of infection, such as:: chills, fever, night sweats, unusual drainage and unusual redness Dressing: Leave Aquacel dressing in place, it will be removed at two week post operative visit. OK to shower but not to soak. Visit Report/Discharge Packet Instructions: DI for Knee Replacement Discharge Data Primary Care Provider: Nicholas Shine Attending Provider: dEmond Hernandez Admit Date/Time: 09/30/18 11:50 Quality VTE Deep Vein Thrombosis/Pulmonary Embolism Present on Admission: No
--- NOTE | 2018-10-02 10:41 | PC.NURSE ---
AM shift pt AO and tolerating a 4/10 pain. States pain increases to an 8 and will ask for pain medications then. pt up and sitting at window with significant other. Refused shower and asked for a bed bath instead. DC order is in and pending last PT eval.
[2018-10-02] MEDS: hydrOXYzine pamoate 25 MG CAPSULE PO (10:49)
--- NOTE | 2018-10-02 11:37 | PT.IPTN ---
Current Diagnoses Presence of left artificial knee joint (09/30/18) Surgery Performed Operation Date: 09/30/18 13:00 Actual Procedures p Uni to Total Knee Arthroplasty Revision(Left) - Edmond Hernandez MD Physical Therapy Treatment Note M2 PT-IP Current Condition Start: 10/01/18 10:24 Freq: NEEDED Status: Active Protocol: Document 10/01/18 09:45 HH (Rec: 10/01/18 10:53 [id number]) Physical Therapy Current Condition Current Condition Evaluation Date 10/01/18 Treatment Diagnosis revision of L TKA, imparied gait and activity tolerance. Onset Date 09/30/18 Weight Bearing Status Weight Bearing Status Weight Bear as Tolerated M3 PT-IP Subjective Start: 10/01/18 10:24 Freq: NEEDED Status: Active Protocol: Document 10/02/18 10:30 HH (Rec: 10/02/18 11:37 [id number]) Subjective Physical Therapy Visit Type Type Treatment Note Visit Start Time 10:30 Visit Stop Time 10:50 Total Visit Minutes 20 Physical Therapy Visit Comments Patient Comments Agreeable to mobilize with PT. Pt's at bedside for CG training. He also feels sore after pm session yesterday Patient Goals To return home. Therapy Pain Assessment Pain When Pain Assessed During Mobility Pain Present Pain Present Pain Reported Location Left Knee Intensity 4 Description Acute Pain Behaviors Guarding Restlessness Wincing Pain Management Techniques Modification of Treatment Re-positioning Timing of Activity with Medications M4 PT-IP Mobility and Gait Start: 10/01/18 10:24 Freq: NEEDED Status: Active Protocol: Document 10/02/18 10:30 HH (Rec: 10/02/18 11:37 [email or web address]) PT-Transfer Assessment Sit to and From Stand Sit to and from Stand Standby Assistance Equipment Transfer Assistive Device Gait Belt Front Wheeled Walker Orthotic/Prosthetic Devices or Brace: No Transfers Transfer Destination Bed Transfer Technique Stand Step Pivot Transfer Ability Level of Assist Standby Assistance Comments Mobility Comments Pt was up on bedside bench in long sit position. Pt agreed to use FWW for mobility from now on. Pt stood up couple times without AD but mostly WB on RLE. He often turns by pivoting his R LE only. Cont required cues for pacing and safety. Gait Assessment Gait Gait Assistance Required: Standby Assistance Distance (Feet) 40 Able to Maintain Weight Bearing Status Yes During Gait Assistive Devices Assistive Device Gait Belt Front Wheeled Walker Orthotic/Prosthetic Devices or Brace: No Gait Deviations General Gait Pattern Antalgic Decreased Stride Length Decreased Feet Clearance Step-to Gait Factors Limiting Gait Function Factors Limiting Gait Function Decreased Activity Tolerance Difficulty Following Directions Limited Range of Motion Pain Comments Gait Comments gait training with FWW in room /hallway with SBA. Demonstrated step to pattern and pt was able to follow after. He states he WB around 50% on LLE at this point. Stair Climbing Assessment Comments Stair Climbing Comments requested not to due to the long walk when he goes home today. PT-Balance Assessment Sitting Balance and Reactions Static Sitting Balance Ability Normal Dynamic Sitting Balance Ability Normal Standing Balance and Reactions Static Standing Balance Ability Good Dynamic Standing Balance Ability Good Device Used FWW M5 PT-IP Objective Assessments Start: 10/01/18 10:24 Freq: NEEDED Status: Active Protocol: Document 10/01/18 09:45 HH (Rec: 10/01/18 10:53 [email or web address]) Orientation Orientation/Cognition Orientation Name Age Birthday Month Date Year Day of Week Place Situation Language Function Ability No Deficits Noted Safety Awareness Decreased Safety Awareness Memory Description Short Term Impaired Comments Pt is forgetful with limitations and repeats himself a lot asking the same questions. Gross Range of Motion Upper Extremity ROM Assessment Within Functional Limits Lower Extremity ROM Assessment Left Impaired Impairments 15-85 degrees of knee AROM Strength Upper Extremity Strength Assessment Within Functional Limits Lower Extremity Strength Assessment Left Impaired Knee 3/5 Coordination Assessment Gross Coordination Gross Coordination WNL Sensation Assessment Sensation Gross Sensation WNL Light Touch Intact Proprioception (Position) Intact Muscle Tone Muscle Tone WNL Yes M6 PT-IP Treatment Start: 10/01/18 10:24 Freq: NEEDED Status: Active Protocol: Document 10/02/18 10:30 HH (Rec: 10/02/18 11:37 [email or web address]) Physical Therapy Treatment Exercises Exercises Ankle Pumps Gluteal Sets Quad Sets Heel Slides Straight Leg Raises Education Education Provided Precautions Weight Bearing Status Post-Op Packet Safety Equipment Issued Equipment Type and Company FW. Other Treatments Other Treatment Performed Standing postural correction with focused WBing through LLE . M7 PT-IP Assessment and Plan Start: 10/01/18 10:24 Freq: NEEDED Status: Active Protocol: Document 10/02/18 10:30 HH (Rec: 10/02/18 11:37 [email or web address]) PT Summary Assessment and Plan Potential Rehabilitation Potential Good Status of Condition at Evaluation Stable Summary Impairments Pain ROM Strength Balance Cognition Bed Mobility Transfers Gait Activity Tolerance Assessment Summary Pt is less impulsive and more cooperative today. Dispensed FWW and educated pt to use step to pattern for mobility at this point. Also recommended him to participate outpatient PT and acquire crutches from drug store once he improves. Pt is safe to d/c with asisstance at home. Frequency of Treatment Frequency Of Treatment Discharge Recommendations To Nursing Amount of Assist Needed Standby Assistance Discharge Recommendations PT Discharge Recommendations Home with Assistance Outpatient PT
== END 2018-10-02 13:20 | disposition home or self-care (01) | DRG 468 ==
PROVIDERS: Admitting Provider Orthopaedic Surgery; PCP Family Medicine Geriatric Medicine; Visit Provider Orthopaedic Surgery
PROC: 0SRD0J9 Replacement of Left Knee Joint with Synthetic Substitute, Cemented, Open Approach (ICD-10-PCS; principal; 2018-09-30 13:00)
DX: T84.84XA Pain due to internal orthopedic prosthetic devices, implants and grafts, initial encounter (principal); M17.12 Unilateral primary osteoarthritis, left knee; Z87.891 Personal history of nicotine dependence
CPT/HCPCS: 36415; 64450; 73560; 85014; 85018; 94760; 97116; 97162; 97530; C1776; C9290; J0690; J1170; J2250; J2704; J3010

== ENCOUNTER → 2022-09-23 07:48 | Outpatient (CLI) | payer MEDICARE, OTHER, SELFPAY ==
[2018-09-30 12:27] VITALS: BMI 27.0
--- NOTE | 2022-09-23 | DI.CT.S_ITS ---
PROCEDURE: CT LUMBAR SPINE WO CON INDICATIONS: Spinal stenosis, lumbar region with neurogenic claudication TECHNIQUE: Noncontrast 3 mm thick sections acquired from the T12 level to the sacrum. Sagittal and coronal reformats were constructed. For radiation dose reduction, the following was used: automated exposure control. COMPARISON: Lumbar MRI 08/31/2022. FINDINGS: Image quality: Excellent. Bones: Grade 1 anterolisthesis of L4 on L5 secondary to facet arthrosis. Stable by Fabien compression deformity of the L1 vertebral body, without endplate retropulsion. T12-L1: Broad-based disc bulge. L1-L2: Broad-based disc bulge and mild facet hypertrophy. L2-L3: Broad-based disc bulge and moderate facet hypertrophy resulting in moderate spinal canal narrowing. L3-L4: Broad-based disc bulge and facet hypertrophy resulting in severe spinal canal narrowing. L4-L5: Broad-based disc bulge and facet hypertrophy resulting in severe spinal canal narrowing. L5-S1: Posterior disc protrusion and moderate bilateral facet hypertrophy. Soft tissues: No retroperitoneal masses or hematomas. Visualized aorta is normal in caliber. IMPRESSION: Stable biconcave compression deformity of the L1 vertebral body, without endplate retropulsion. Multilevel degenerative disc disease and facet arthrosis, resulting in moderate to severe spinal canal narrowing at L2 through L5. This is better appreciated on comparison lumbar MRI. Dictated by: Julian Wahl M.D. on 09/24/2022 at 11:54 Approved by: Julian Wahl M.D. on 09/24/2022 at 12:21
== END ==
PROVIDERS: PCP Physician Assistant Medical; Referring Provider Orthopaedic Surgery Orthopaedic Surgery of the Spine; Visit Provider Orthopaedic Surgery Orthopaedic Surgery of the Spine
DX: M48.062 Spinal stenosis, lumbar region with neurogenic claudication (principal); M51.36 Other intervertebral disc degeneration, lumbar region; M51.27 Other intervertebral disc displacement, lumbosacral region; M47.816 Spondylosis without myelopathy or radiculopathy, lumbar region; M47.817 Spondylosis without myelopathy or radiculopathy, lumbosacral region; M43.8X6 Other specified deforming dorsopathies, lumbar region
CPT/HCPCS: 72131

== ENCOUNTER 2022-10-16 08:09 | Inpatient (IN) | payer MEDICARE, OTHER, SELFPAY ==
[2018-09-30 12:27] VITALS: BMI 27.0
[2022-10-09 09:42] VITALS: BMI 29.0
[2022-10-16] VITALS (12 sets, daily range): BP systolic 78–120; BP diastolic 48–70; PULSE 61–92; RESP 12–20; TEMP 36.2–36.7; O2SAT 93–99; BMI 29.0
--- NOTE | 2022-10-16 | DI.RAD.S_ITS ---
PROCEDURE: XR LUMBAR SPINE 2-3V INDICATIONS: L3-4 L4-5 L5-S1 TLIF TECHNIQUE: 3 views of the lumbar spine were acquired. COMPARISON: None. FINDINGS: Bones: 5 [id number] vertebrae are present. Postoperative changes of pedicular screw and andra fixation spanning from L3 through S1. There is normal bony alignment. No vertebral body compression fractures. No suspicious bony lesions. Soft tissues: Overlying bowel gas pattern is normal. No suspicious soft tissue calcifications. IMPRESSION: Postoperative changes in the lumbar spine. Dictated by: Harvey García M.D. on 10/16/2022 at 16:14 Approved by: Harvey García M.D. on 10/16/2022 at 16:14
[2022-10-16] MEDS: LACTATED RINGERS 1,000 ML 84 ML IV ×2 (08:51→13:44)
--- NOTE | 2022-10-16 09:42 | PM.PREOP ---
Pre-operative Note COVID-19 COVID-19 status: Negative Result date/Date tested (Pos, Neg/Pending): 10/15/22 Criteria for continued procedure: Expected advancement of disease process, Possibility delay results in more complex future surgery or treatment, Increased loss of function, Continuing or worsening of significant or severe pain, Deterioration of the patient's condition or overall health and Delay expected to result in less-positive ultimate med/surg outcome Interval Note History & Physical reviewed/Exam performed by Physician: Yes Changes to H&P: No
[2022-10-16] MEDS: CEFAZOLIN 2 GM/100 ML PREMIX 100 ML IV ×2 (10:40→18:06)
--- NOTE | 2022-10-16 11:36 | SUR.OPER ---
Prone on spine table, head in foam head support, padded chest and pelvic supports, gel pad at knees, lower legs supported by pillows; nipples, genitalia and toes free of pressure, arms secured on foam padded arm boards at <90 degrees abduction. Tape over blanket at thigh secured to table.
[2022-10-16] MEDS: BUPIVACAINE 0.25% (PF) 30 ML, EPINEPHrine 0.15 MG INJ (12:14)
[2022-10-16] MEDS: BUPIVACAINE LIPOSOME 266 MG/20 ML VIAL INJ (13:15)
--- NOTE | 2022-10-16 15:51 | P.OP_ITS ---
Operative Date/Time/Diagnoses Date of procedure: 10/16/22 Time of procedure: 10:00 Pre-op diagnosis: 1. Lumbar spondylolisthesis 2. Lumbar spinal stenosis with neurogenic claudication L3-4, L4-5, L5-S1 Post-op diagnosis: same Procedure & Clinicians Procedure: 1. L3-4, L4-5, L5-S1 Postero-lateral and posterior interbody fusion 2. L3-4, L4-5, L5-S1 interbody cage placement. 3. L3-4, L4-5, L5-S1 decompressive laminectomy with bilateral facetecomies 4. L3-4, L4-5, L5-S1 Posterior segmental instrumentation 5. Hartsel of bone marrow from iliac crest 6. Utilization of microsurgical technique and operating microscope 7. Utilization of robotic assisted navigation Same procedure as scheduled: Yes Indications: Patient has been having chronic back pain and worsening lumbar radiculopathy and symptoms neurogenic claudication. Patient failed multiple conservative management with worsening pain weakness and numbness in his lower extremity. Patient has been having difficulty performing activity of daily living. After discussing risks benefits of treatment options, patient elected proceed with surgery. Surgeon: Debra Stratton Spinneret Person: Bhumi Yeh Click Yes if Unassisted: No Anesthesia Type: General Operative Notes Closure Type: primary Specimen(s): none sent Prosthetic devices, grafts, tissues, transplants, or devices: Globus CREO MIS screws, Rise cages Applied: catheter Estimated Blood Loss (mL): 150 Blood products transfused: none Procedure in detail: Patient was seen in the preoperative area. Risks and benefits of the surgery was discussed with the patient. Informed consent was obtained from the patient and placed in the chart. Surgical site was marked. Patient was taken to the operative room. General anesthesia was administered. Prophylactic antibiotic was given to the patient less than 30 min before the incision was made. Patient was placed into a prone position on the Kalyan table. Patient's back was then prepped and draped in the sterile fashion. Time-out was performed at this time. After patient was prepped and draped, patient's PSIS was palpated and marked bilaterally. Small 1 cm incision was made over the PSIS for placement of the reference probes. Two trocar was placed into the PSIS 1 on each side. The reference probe was attached to the trocar of the reference apparatus. At this time the C-arm imaging was used to confirm AP and lateral of L3-4, L4- L5, L5-S1 vertebrae and merged the C-arm imaging using the [employer] robotic navigation system with the CT of the lumbar spine. After successful merging was completed and confirmed, skin marker was used to zach out the skin incision using the [employer] robotic arm. Bilateral incision was made at this time. Pre templated trajectory was used and guided using the [employer] robotic navigation system for bilateral L3, L4, L5, S1 pedicle screw placement. This was done by using the robotic arm to guide the high-speed bur to make a cortical entry point. Next a drill was placed also using the robotic arm and guided using the navigation system drilling partially through bilateral L3, L4, L5 and S1 pedicles. Next L3, L4, L5, S1 pedicle screws it was pre templated and measured was placed onto the power regional truck driver and inserted into the pedicles bilaterally. After all 8 screws were placed C-arm imaging was taken of both AP and lateral to confirm the placement. Excellent placement of the screws were confirmed and a matched precisely with the pre planned screw placement using the navigation system. MARs retractor was inserted using [employer] guidence. Globus MARS retractors was placed inside the incision and docked onto the L3, L4 and L5 lamina. Using microsurgical technique and operating microscope, a L3, L4, L5 laminectomy and L3-4, L4-5, L5-S1 facetectomy was performed using a Kerrison rongeur. The laminectomy and facetectomy was performed in order to decompress patient's cauda equina as well as the nerve roots exiting at the L3-4, L4-5, L5- S1 level. Patient was found have severe central stenosis, severe lateral recess and neural foramen stenosis which was fully decompressed after the laminectomy and facetectomy. More than 75% of the facets were removed during the process of decompression rendering L3-4, L4-5, L5-S1 level grossly unstable and required a fusion procedure at the same time. The disc space at L3-4, L4-5, L5-S1 was identified, and a total diskectomy was performed at L3-4, L4-5, L5-S1 level. The endplates were decorticated using a rasp and shaver. The total diskectomy and decortication was performed at L3-4, L4-5, L5-S1 level in order to to accomplish a L3-4, L4-5, L5-S1 fusion. The local bone from the laminectomy and facetectomy was saved for local bone grafting. After the total diskectomy and decortication was completed, Trifecta bone graft material was combined with local bone that was harvested earlier. At this time, a separate skin is incision was made over the iliac crest. A Jamshidi needle was inserted into the iliac crest through a separate skin incision. 5 cc of bone marrow aspiration was obtained through the separate skin incision using a Jamshidi needle from the iliac crest. The bone marrow aspiration was combined with local bone and the Trifecta bone grafting material. The bone grafting material was placed into the L3-4, L4-5, L5-S1 interbody space along with a expandable cage. The cage was expanded to its maximum height using the torque limiting screwdriver. The disc preparation as well as the cage insertion were also performed under navigation guidance. After the cage was placed, AP and lateral C-arm imaging was taken to confirm placement of the cage and excellent position was confirmed. Globus MARS retractor was inserted and docked onto the L3-4, L4-5, L5-S1 posterolateral gutter on the right side. Using the power drill, posterior- lateral decortication was performed at L3-4, L4-5, L5-S1 level until bleeding cortical bone was identified. The remaining bone grafting material was placed into the L3-4, L4-5, L5-S1 posterior lateral gutter he order to accomplish posterolateral fusion at the L3-4, L4-5, L5-S1 level. At this time the tulips were attached to the L3, L4, L5, S1 pedicle screw shanks. After measuring the length of the rods, they were inserted into the tulips of the pedicle screws and locked in place using locking caps and torque limiting screwdriver bilaterally. Total 6 caps and 2 titanium rods was used in order to complete the posterior instrumentation construct. After all the hardware was placed, and confirmed with AP and lateral C-arm imaging, the wound was then irrigated with sterile normal saline and packed with Ray-Shania gauze for 3 min to accomplish hemostasis. After the gauze was removed the deep fascia was closed with #1 Vicryl suture. The subcutaneous layer was closed with 2-0 Vicryl. The skin was closed with skin mary. Patient tolerated the procedure well. There were no complications. Neuro monitoring system was used to monitor patient's neurologic status throu ghout entire procedure. There was no disturbance of the neural monitoring signals throughout the case. The Operation could not have been safely performed without compromising the technical result or length of the procedure, without the assistance of a skilled surgical physician assistant. The surgical physician assistant was medically necessary for proper positioning, retraction and manipulation of instruments, proper exposure, surgical preparation, and manipulation of tissue. Complications: none Post-operative Condition: stable Disposition: PACU Plan for aftercare: Admit to inpatient hospital
[2022-10-16] MEDS: OXYCODONE IR 5 MG TABLET PO (16:21)
[2022-10-16] MEDS: hydrOXYzine 50 MG/ML INJ IM (16:21)
[2022-10-16] MEDS: ONDANSETRON 4 MG/2 ML INJ IV (16:21)
--- NOTE | 2022-10-16 17:37 | PC.NURSE ---
Pt to room 211 via bed from PACU. Pt is drowsy but appropriately responsive when spoken to. Pt denies nausea or shortness of breath. Spoke to Pt and Spouse Genoveva about no bending lifting or twisting, using log rolling method to get out of bed. Oriented patient to room, call light, tv controls, bed controls. Reminded patient to call for assistance as needed and to not get out of bed without help. IV infusing as ordered, SCDs on and running, bed alarm on for safety. Multiple pillow used for repositioning and support, hydration and meal provided.
[2022-10-16] MEDS: ACETAMINOPHEN 325 MG TABLET 650 MG PO (18:49)
[2022-10-16] MEDS: OXYCODONE IR 10 MG TABLET PO (20:15)
[2022-10-16] MEDS: SENNOSIDES 8.6 MG TABLET 17.2 MG PO (20:16)
[2022-10-16] MEDS: DOCUSATE 100 MG CAPSULE PO (20:17)
[2022-10-17] MEDS: OXYCODONE IR 10 MG TABLET PO ×6 (00:20→23:56)
[2022-10-17] MEDS: ACETAMINOPHEN 325 MG TABLET 650 MG PO ×5 (00:20→23:56)
[2022-10-17] MEDS: hydrOXYzine pamoate 25 MG CAPSULE PO ×5 (00:21→23:56)
[2022-10-17] MEDS: CEFAZOLIN 2 GM/100 ML PREMIX 100 ML IV (03:36)
[2022-10-17 04:31] VITALS: BP 101/58; PULSE 77; RESP 17; TEMP 36.7; O2SAT 98
[2022-10-17 06:25] LABS: Hematocrit 35.3 % (41-53)
--- NOTE | 2022-10-17 07:55 | PM.PNPO.1 ---
Subjective Subjective Date Patient Seen: 10/17/22 Time Patient Seen: 07:55 Interval history: Pt sitting up in bed comfortably, says he is feeling better by the hour. C/o low back pain about the incisions, denies leg symptoms. He was having LLE pain prior to surgery; this has resolved. Denies N/V. Exam Vital Signs (past 8 hours): - 10/17/22 04:31 Temperature 98.1 F Pulse Rate 77 Respiratory Rate 17 Blood Pressure 101/58 L Pulse Oximetry 98 Oxygen Flow Rate 0 Oxygen Delivery Method Nasal Cannula Oxygen Flow Rate 0 Narrative Exam Narrative: 5/5 strength in hip flexors, quadriceps, hamstrings, DF, PF, EHL bilaterally. Sensation to light touch intact throughout BLE. Calves soft, compressible, nontender and without palpable cords or masses. Dressing placed intraoperatively is CDI. Hernandez catheter with adequate amounts of clear, yellow urine. Objective Labs 10/17/22 06:07 Labs: Laboratory Results - last 24 hr 10/17/22 06:07 Hgb 12.0 L Hct 35.3 L PFSH Medical History (Updated 10/17/22 @ 07:59 by Bhumi Yeh PA-C) History of COVID-19 (2021) MRSA (methicillin resistant staph aureus) culture positive (~12/2017) Osteoarthritis Splinter (~12/2017) Surgical History (Updated 10/17/22 @ 07:59 by Bhumi Yeh PA-C) History of arthroplasty of right knee History of incision and drainage (02/16/18) History of incision and drainage (06/25/18) History of total left knee replacement (09/30/18) S/P left unicompartmental knee replacement (~2014) Social History household members: spouse Smoking Status: Former smoker alcohol intake: current Assessment & Plan Post-op Assessment and plan (1) S/P lumbar fusion: Assessment and Plan narrative: D/c hernandez, PT, SCDs for VTE prophylaxis. Likely discharge home tomorrow if he makes adequate progress w/ PT today and is able to void independently. (2) Acute postoperative anemia due to expected blood loss: Assessment and Plan narrative: VSS, asymptomatic. No intervention needed at this time. Postoperative Procedures: Procedures Operation Date: 10/16/22 10:15 Actual Procedure Side Surgeon p L3-4, L4-5, L5-S1 TLIF w. posterior instrumentation -Robot Debra Stratton MD Postoperative day: 1 Quality VTE Deep Vein Thrombosis/Pulmonary Embolism Present on Admission: No
[2022-10-17 08:00] VITALS: BP 124/72; PULSE 77; RESP 16; TEMP 37.2; O2SAT 97
[2022-10-17] MEDS: DOCUSATE 100 MG CAPSULE PO ×2 (08:52→23:56)
--- NOTE | 2022-10-17 10:41 | PT.IIE ---
Current Diagnoses Acute posthemorrhagic anemia (10/16/22) Spondylolisthesis, lumbar region (10/16/22) Spinal stenosis, lumbar region with neurogenic claudication (10/16/22) Arthrodesis status (10/16/22) Surgery Performed Operation Date: 10/16/22 10:15 Actual Procedures p L3-4, L4-5, L5-S1 TLIF w. posterior instrumentation -Robot - Debra Stratton MD Surgical History (Last Updated 10/09/22 @ 12:33 by Kady Cortes RN) History of arthroplasty of right knee History of incision and drainage (02/16/18) History of incision and drainage (06/25/18) History of total left knee replacement (09/30/18) S/P left unicompartmental knee replacement (~2014) Medical History (Last Updated 10/09/22 @ 10:14 by Kady Cortes RN) History of COVID-19 (2021) MRSA (methicillin resistant staph aureus) culture positive (~12/2017) Osteoarthritis Splinter (~12/2017) Physical Therapy Inpatient Evaluation/Re-Eval M1 PT/OT-IP Prior Functional Status Start: 10/17/22 09:35 Freq: NEEDED Status: Active Protocol: Document 10/17/22 10:28 ES (Rec: 10/17/22 10:41 ES [id number]) Medical Review Prior Functional Status Medical History Reviewed Yes Diet/Fluid Consistency Regular Communication WFL Mobility and Gait Indep with occasional use of cane Activities of Daily Living and IADL's Indep Social History Household Members spouse Living Arrangements House Number of Floors (Floors) One Floor Number of Stairs To Enter/Railing? None Home Environment High Toilet,Walk in Shower,Tub /Shower Home Equipment Straight Cane,Shower Seat without Backrest,Long Handled Shoe Horn,Dresser Tender,Grab Bars In Shower Employment Status Retired Additional Social History Comment Patient lives in [place] and will have to take the ferrPersonal Style Finder back home. Recently built his home to be w/c accessible. Has grab bars for next to the toilet but hasn't installed them yet. M2 PT-IP Current Condition Start: 10/17/22 09:35 Freq: NEEDED Status: Active Protocol: Document 10/17/22 10:28 ES (Rec: 10/17/22 10:41 ES [id number]) Physical Therapy Current Condition Current Condition Evaluation Date 10/17/22 Treatment Diagnosis S/p lumbar fusion Onset Date 10/16/22 M3 PT-IP Subjective Start: 10/17/22 09:35 Freq: NEEDED Status: Active Protocol: Document 10/17/22 10:28 ES (Rec: 10/17/22 10:41 ES [id number]) Subjective Physical Therapy Visit Type Type Initial Evaluation Visit Start Time 09:40 Visit Stop Time 10:25 Total Visit Minutes 45 Physical Therapy Visit Comments Patient Comments Patient alert in bed, present. Patient stated he is ready to get out of bed and wants to work with PT. Is planning to stay one more night in the hospital. Therapy Pain Assessment Pain When Pain Assessed During Mobility Pain Present Pain Present Pain Reported Location back Scale Used 1/10 at rest, increased with activity Description With Movement M4 PT-IP Mobility and Gait Start: 10/17/22 09:35 Freq: NEEDED Status: Active Protocol: Document 10/17/22 10:28 ES (Rec: 10/17/22 10:41 ES [id number]) PT-Bed Mobility Assessment Rolling Type of Rolling Log Rolling,Roll to Right,Roll to Left Level of Assist Standby Assistance Supine to Sit Supine to Sit Standby Assistance Sit to Supine Sit to Supine Standby Assistance Scooting Scooting to Edge of Bed Standby Assistance PT-Transfer Assessment Sit to and From Stand Sit to and from Stand Standby Assistance,Use of Upper Extremities Equipment Transfer Assistive Device Gait Belt,Front Wheeled Walker Orthotic/Prosthetic Devices or Brace: No Comments Mobility Comments Patient instructed in STS technique to reduce lumbar flexion, performed best with one hand on bed, other hand on FWW. Instructed in log roll technique for supine to/from sit, with cues for keeping knees in flexed position during rolling to reduce twisting. Gait Assessment Gait Gait Assistance Required: Standby Assistance Distance (Feet) 100 Assistive Devices Assistive Device Gait Belt,Front Wheeled Walker Orthotic/Prosthetic Devices or Brace: No Gait Deviations General Gait Pattern Decreased Stride Length Factors Limiting Gait Function Factors Limiting Gait Function Pain Comments Gait Comments Patient ambulated slowly, no LOB. Cued for turning using small steps and keeping hips and shoulders facing the same direction to reduce twisting. Stair Climbing Assessment Comments Stair Climbing Comments No stairs at home. PT-Balance Assessment Sitting Balance and Reactions Static Sitting Balance Ability Good Dynamic Sitting Balance Ability Good Standing Balance and Reactions Static Standing Balance Ability Good Dynamic Standing Balance Ability Good Device Used FWW M5 PT-IP Objective Assessments Start: 10/17/22 09:35 Freq: NEEDED Status: Active Protocol: Document 10/17/22 10:28 ES (Rec: 10/17/22 10:41 ES [id number]) Orientation Orientation/Cognition Level of Alertness Alert Orientation Name,Age,Birthday,Month,Date, Year,Day of Week,Place, Situation Language Function Ability No Deficits Noted Safety Awareness Understands Safety Issues Memory Description No Deficits Noted Gross Range of Motion Upper Extremity ROM Assessment Within Functional Limits Lower Extremity ROM Assessment Within Functional Limits Strength Upper Extremity Strength Assessment Within Functional Limits Lower Extremity Strength Assessment Within Functional Limits Comments Strength Comments Decreased trunk strength Coordination Assessment Gross Coordination Gross Coordination WNL Sensation Assessment Sensation Gross Sensation WNL Comments Sensation Comments Denied numbness/tingling Muscle Tone Muscle Tone WNL Yes M6 PT-IP Treatment Start: 10/17/22 09:35 Freq: NEEDED Status: Active Protocol: Document 10/17/22 10:28 ES (Rec: 10/17/22 10:41 ES [id number]) Physical Therapy Treatment Exercises Exercises Ankle Pumps Education Education Provided Precautions,Weight Bearing Status,Post-Op Packet,Safety M7 PT-IP Assessment and Plan Start: 10/17/22 09:35 Freq: NEEDED Status: Active Protocol: Document 10/17/22 10:28 ES (Rec: 10/17/22 10:41 ES [id number]) PT Summary Assessment and Plan Potential Rehabilitation Potential Excellent Status of Condition at Evaluation Stable Summary Impairments Pain,Strength,Activity Tolerance Assessment Summary Patient is a 67 year old male who presents with impaired functional mobility due to the above problems. He was able to perform all mobility tasks at SBA level with FWW, with cues for lumbar precautions with good follow through. Patient requires the use of FWW to be able to ambulate for household distances due to pain and increased fall risk. His pain was increased with activity within his tolerance level. He will benefit from further PT to review precautions and to increase independence with mobility prior to d/c home. Goals Bed Mobility Goal Independent Transfer Goal Independent,Front Wheeled Walker Gait Goal Independent,Front Wheel Walker Gait Distance 150 Days to Meet Goals 5 Frequency of Treatment Frequency Of Treatment Twice a Day Treatment Plan Physical Therapy Treatment Plan Bed Mobility Training,Transfer Training,Gait Training,Post Op Education,Discharge Planning Precautions Lumbar Precautions Log Roll,No Twisting,Limit Bending,Lifting Restriction of 10 lbs,Gait Belt above Incisional Area Weight Bearing Status Weight Bearing Status Weight Bear as Tolerated Recommendations To Nursing Amount of Assist Needed Standby Assistance Discharge Recommendations PT Discharge Recommendations Home with Assistance Equipment Needed for Home Before FWW Discharge Transportation Needs at Discharge Private Vehicle
--- NOTE | 2022-10-17 10:43 | CM.DANOTE ---
DCP: Case received, EMR reviewed and met with patient. Spouse, Genoveva, was at bedside. Introduced self and role. Was able to obtain information regarding patient's baseline activity status prior to his surgery. DCP assessment completed with information currently available. Patient is a 67 year old male who admitted yesterday morning to the care of the surgical team. PCP: Dr. Espinoza. Payer: confirmed: Medicare/[facility]. Patient came to the hospital via private vehicle for a surgical procedure. Patient had L3-4, L4-5, L5-S1 postero-lateral and posterior interbody fusion. Patient has history of lumbar spinal stenosis with neurogenic claudication. Met with patient and spouse in the room. Patient was sitting up in bed, alert and oriented. Confirmed that he and spouse both reside in [place]. He is independent at baseline, he was employed at [employer], but is now retired. He has used no DME prior to surgery. He did have some questions. Wanted to ensure that [place], let him know that the community health nurse staff can get this, this DC inventory planner can also let her know. Patient stated that the provider stated that he can discharge tomorrow. Patient also wanted to see if he can get his prescriptions here in [place], requesting [place], let him know that nursing can send prescriptions there, as long as it's tomorrow, and not on a weekend. P: DCP to continue to follow. Patient was ambulating down the hallway with P.T using FWW. P.T. asked to place an order for a FWW. This DC Painter [employer] Body Work placed order under home services for FWW. Bailey Shaffer RN/Store Stocker Discharge Planning/Care Management CM Discharge Assessment Start: 10/17/22 10:42 Freq: Status: Active Protocol: Document 10/17/22 10:42 (Rec: 10/17/22 10:43 [id number]) Discharge Planning Assessment Assigned Clinical Fellow Bailey Shaffer RN/Store Stocker Advance Directives? Yes Advance Directives on File No History Provided By Patient,Medical Record Prior Living Arrangements House Household Members spouse Type of transporation used prior to Drives own vehicle admit Independent with ADL's Yes Is patient alert and oriented? Yes Caregiver for Another No Barriers to Discharge No Discharge Plan Home Transportation Arrangement Spouse Referrals Initiated None needed Whiteboard Updated in Patient Room with Yes name and ext. # of Clinical Fellow Review Status In Process Next Review Type Continued Stay Review Pre-Anesthesia Assessment Start: 10/09/22 09:42 Freq: Status: Complete Protocol: Document 10/09/22 09:42 CAB (Rec: 10/09/22 10:28 CAB [id number]) Pre-Anesthesia Assessment PAC Comment Pre-op EKG compared with prior EKG 2017 - no change Patient Information Reviewed Via Phone Assessment Assessment Completed With Patient Diagnostic Results BMP/CMP,CBC,EKG Comment Outside labs/EKG scanned Primary Care Provider Gabriela Espinoza Seen Specialist in Last 12 Months Yes Specialist Seen Orthopedist Primary Language Citizen [place] Preferred Language Citizen [place] 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 Security Required No Height 6 ft 1 in Weight 220 lb Body Mass Index (BMI) 29.0 Hearing Ability Normal Visual Assist Magnifying Glass Dentition Type Teeth, Natural Present,Dental Implants Barriers to Learning None Comment I'm mentally dyslexic Hx Anesthesia Reactions No Hx Family Anesthesia Reaction No Hx Malignant Hyperthermia No Hx Blood Transfusions No Anesthesia Review Requested No Trimmer Sawyer No alcohol intake current alcohol intake frequency a few times a week Smoking Status Former smoker how long ago did patient quit smoking Quit 10 years Substance Use Type does not use Pain Present Pain Reported Musculoskeletal Symptoms Abnormal Gait,Back Pain, Difficulty Walking,Radiating Pain into Limb History of Falling (Recent or History of No ) Patient is completely paralyzed or No completely immobile Mental Status Oriented to own ability Is patient on oxygen? No Does patient have MUNSON/SOB No Hx Sleep Apnea No CPAP/BIPAP use not prescribed Currently Taking a Beta Herminio No Can You Climb a Flight of Stairs Without Yes SOB Hx Chest Pain No Hx SOB No Hx Syncope or Dizziness No Anti-Coagulant Therapy No Has a Senior Bi Developer No Cardiac Testing No Hx Pacemaker/ICD No Pacemaker Rep Required? No Cardiac Clearance Received Not Applicable Diet Type At Home Regular Dysphagia No Chronic UTI No Urinary Catheter Present No Hx Urinary Self Catheterization No Diabetes No HgbA1C 5.8 Date 09/17/22 Hx Drug Resistant Organism Yes: MRSA left elbow 01/05/18 Presence of External or Internal Medical Yes: Isidoro knee prosthesis Devices Received a COVID vaccine? Yes Received all doses? Yes Marital Status Lives With spouse Current Living Arrangements House Number of Floors (Floors) Two Floors Support System Child/Children,Spouse Does the Patient Have Assistance After Yes Surgery Patient Discharge Plan Description Return Home Comment Pt advised 1-2 night length of stay per surgeon Additional comment Lives on [facility] Feels Safe in Current Environment Yes Been Physically Hurt or Threatened By a No Person in Current Environment Do you have thoughts of harming yourself None or others? Are you currently considering suicide? No Do you have a plan to hurt yourself or No Plan others? Do You Have Any Spiritual Beliefs That No May Affect Your HC Choices? Do You Have Any Cultural Practices That No May Affect Your HC Choices? Comment [place] Who Can We Speak to About Patient's Care Family, friends Identifying Code for Release of Patient Declines to issue Information Health Care Proxy/Next of Kin Genoveva Starr () Health Care Proxy Emergency Contact Name Genoveva Starr () Emergency Contact Advance Directives? Yes Advance Directives on File No Requested Patient Bring Advanced Yes Directives DOS Power of Entry Level Marketing Assistant Yes Power of Entry Level Marketing Assistant Name Matty Calzada- Power of Entry Level Marketing Assistant PAC Instructions Durable medical equipment, Medications to take/avoid, Nasal antibiotic,No ETOH/ petroleum product on skin DOS, NPO,Pre-surgical wash,Sensory aids,Sturdy shoes/comfortable clothes,Do not bring valuables and remove jewelry
--- NOTE | 2022-10-17 11:34 | OT.IP.EVAL ---
Current Diagnoses Acute posthemorrhagic anemia (10/16/22) Spondylolisthesis, lumbar region (10/16/22) Spinal stenosis, lumbar region with neurogenic claudication (10/16/22) Arthrodesis status (10/16/22) Surgery Performed Operation Date: 10/16/22 10:15 Actual Procedures p L3-4, L4-5, L5-S1 TLIF w. posterior instrumentation -Michaela - Debra Stratton MD Past Medical History (Last Updated 10/09/22 @ 10:14 by Kady Cortes RN) History of COVID-19 (2021) MRSA (methicillin resistant staph aureus) culture positive (~12/2017) Osteoarthritis Splinter (~12/2017) Surgical History (Last Updated 10/09/22 @ 12:33 by Kady Cortes RN) History of arthroplasty of right knee History of incision and drainage (02/16/18) History of incision and drainage (06/25/18) History of total left knee replacement (09/30/18) S/P left unicompartmental knee replacement (~2014) Occupational Therapy Inpatient Evaluation/Re-Eval M1 PT/OT-IP Prior Functional Status Start: 10/17/22 12:27 Freq: NEEDED Status: Active Protocol: Document 10/17/22 11:34 [facility] (Rec: 10/17/22 13:00 [facility] [id number]) Medical Review Prior Functional Status Medical History Reviewed Yes Diet/Fluid Consistency Regular Communication WFL Mobility and Gait Indep with occasional use of cane Activities of Daily Living and IADL's Indep Social History Household Members spouse Living Arrangements House Number of Floors (Floors) One Floor Number of Stairs To Enter/Railing? None Home Environment High Toilet,Walk in Shower,Tub /Shower Home Equipment Straight Cane,Shower Seat without Backrest,Long Handled Shoe Horn,Production Tech,Grab Bars In Shower Employment Status Retired Additional Social History Comment Patient lives in [place] and will have to take the ferry back home. Recently built his home to be w/c accessible. Has grab bars for next to the toilet but hasn't installed them yet. M2 OT-IP Current Condition Start: 10/17/22 12:27 Freq: Status: Active Protocol: Document 10/17/22 11:34 [facility] (Rec: 10/17/22 13:00 [facility] [id number]) Occupational Therapy Current Condition Current Condition Evaluation Date 10/17/22 Treatment Diagnosis S/P L3-4, L4-5, L5-S1 TLIF with posterior inst Diagnosis Onset Date 10/16/22 Post Operative Precautions Lumbar Precautions Log Roll,No Twisting,Limit Bending,Lifting Restriction of 10 lbs,Gait Belt above Incisional Area M3 OT- IP Subjective and Pain Start: 10/17/22 12:27 Freq: Status: Active Protocol: Document 10/17/22 11:34 [facility] (Rec: 10/17/22 13:00 [facility] [id number]) OT- Subjective Occupational Therapy Visit Type Type Initial Evaluation Visit Start Time 11:34 Visit Stop Time 12:21 Total Visit Minutes 47 Occupational Therapy Visit Comments Patient Comments Pt agreed to get up and wanting to use the bathroom. Pt's in the room. Patient/Caregiver Goals To go home. OT Pain Assessment Pain When Pain Assessed At Rest Pain Present Pain Present Pain Reported Location back Intensity 2 Scale Used Numeric (0 - 10) M4 OT- IP ADL's Start: 10/17/22 12:27 Freq: Status: Active Protocol: Document 10/17/22 11:34 [facility] (Rec: 10/17/22 13:00 [facility] [id number]) OT [id number] Comments OT Self-Feeding Comments Not at meal time. OT ADL-Grooming General Evaluation Grooming Ability Standby Assistance Comments OT Grooming Comments Able to do while standing with FWW and able to use this hand on the counter for balance. OT ADL-Oral Care General Eval Oral Care Ability Standby Assistance Comments Oral Care Comments VC to spit into a cup or hinge at his hips to best follow his back precautions. OT ADL-Dressing General Eval Lower Body Dressing Ability Maximum Assistance Areas Needing Assistance Socks Comments OT Dressing Comments Initiated education of LB dressing equipment. OT ADL-Toileting Comments OT Toileting Comments Able to go over toileting needs and at this time easier for pt to stand and wipe to best follow his back precautions. Pt states his son to put in a right grab bar for his to use. Pt's came in to talk to OT and asking other options if the grab bar in not in place. To go over with pt and his regarding showering, toileting , and dressing needs. OT ADL-Bathing Comments OT Bathing Comments To do tomorrow. M5 OT- IP IADL's Start: 10/17/22 12:27 Freq: Status: Active Protocol: Document 10/17/22 11:34 [facility] (Rec: 10/17/22 13:00 [facility] [id number]) OT-Instrumental Activities of Daily Living Home Safety Awareness Awareness of Need for Assistance at Home Good Awareness Ability to Problem Solve Emergency Unable to Problem Solve Situations Home Safety Comments Pt is a little groggy and not thinking well. Pt needing extra time to process and follow directions. Pt has a supportive to assist with his needs. M6 OT- IP Functional Cognition Start: 10/17/22 12:27 Freq: Status: Active Protocol: Document 10/17/22 11:34 [facility] (Rec: 10/17/22 13:00 [facility] [id number]) Cognitive Factors Limiting Selfcare Function Cognitive Ability Level of Alertness Alert,Drowsy Patient Orientation Name,Place,Situation Attention Span Ability Capable of Focused Attention, Capable of Sustained Attention Ability to Follow Commands Able to Follow One Step Commands with Increased Time, Able to Follow One Step Commands with Repetition Safety Awareness Decreased Ability to Apply Precautions Problem Solving Ability Needs Assist to Identify Solutions Cognitive Comments Cognitive Assessment Comments Pt slow to process and follow directions. Pt still a bit groggy from surgery. Pt needing repeated cues to follow and increased time to absorb the information at this time. OT- Vision and Hearing OT- Hearing Assessment OT- Hearing Assessment WFL M7 OT- IP Mobility and Balance Start: 10/17/22 12:27 Freq: Status: Active Protocol: Document 10/17/22 11:34 [facility] (Rec: 10/17/22 13:00 [facility] [id number]) OT- Bed Mobility Assessment Rolling Type of Rolling Roll to Right Level of Assistance Bedrails Supine to Sit Supine to Sit Assist Standby Assistance,Contact Guard Assistance Sit to Supine Sit to Supine Assist Standby Assistance Scooting Scooting to Edge of Bed Standby Assistance OT-Transfer Assessment Sit to and From Stand Sit to and from Stand Standby Assistance,Contact Guard Assistance Transfers Transfer Ability Standby Assistance,Contact Guard Assistance Technique Transfer Destination Bed,Toilet Devices Transfer Assistive Devices Gait Belt,Front Wheeled Walker Comments Mobility Comments VC for log rolling and initially CGA for trunk, pt states has a head board to hold to assist at home. Pt CGA to stand and cues to push up with his hands on the bed to stand to FWW. Pt needing heavy use of grab bar to come to stand . OT- Balance Assessment Sitting Balance and Reactions Static Sitting Balance Ability Normal Dynamic Sitting Balance Ability Good Standing Balance and Reactions Static Standing Balance Ability Fair Dynamic Standing Balance Ability Fair M9 OT- IP Assessment and Plan Start: 10/17/22 12:27 Freq: Status: Active Protocol: Document 10/17/22 11:34 [facility] (Rec: 10/17/22 13:00 [facility] [id number]) OT Summary Assessment and Plan Potential Rehabilitation Potential Good Analytic Complexity at Evaluation Low Summary OT Impairments Pain,Balance,Functional Mobility,Grooming,Dressing, Toileting,Bathing,Toilet Transfers,Shower Transfers Progress Towards Goals Progressing Toward Goals,Slow Progress due to Pain,Slow Progress due to Medical Issues Assessment Summary Pt a bit groggy from surgery and needing increased time to follow commands and process information. Able to go through grooming, oral care, toileting , and equipment needs for showering and dressing. To complete caregiver training for showering and dressing tomorrow at 8AM. Goals Grooming Goal Independent Dressing Goal Minimal Assistance Toileting Goal Independent Bathing Goal Standby Assistance Toilet Transfer Goal Independent Shower Transfer Goal Independent Patient/Caregiver Education Goal Demonstrate Post-Op Precautions,Caregiver Independent Assisting Patient Days to Meet Goals 7 Frequency of Treatment Frequency Of Treatment Once a Day Treatment Plan OT Treatment Plan ADL Training,Functional Cognition Training,Functional Mobility,Patient/Family Education,Discharge Planning Other Treatment Recommendations and Next shower/caregiver training Treatment Focus Discharge Recommendations OT Discharge Recommendations Home with Assistance Home Equipment Needs FWW, shower chair with armrest , sock aid Transportation Needs at Discharge Private Vehicle
--- NOTE | 2022-10-17 13:55 | PT.IPTN ---
Current Diagnoses Acute posthemorrhagic anemia (10/16/22) Spondylolisthesis, lumbar region (10/16/22) Spinal stenosis, lumbar region with neurogenic claudication (10/16/22) Arthrodesis status (10/16/22) Surgery Performed Operation Date: 10/16/22 10:15 Actual Procedures p L3-4, L4-5, L5-S1 TLIF w. posterior instrumentation -Robot - Debra Stratton MD Physical Therapy Treatment Note M2 PT-IP Current Condition Start: 10/17/22 09:35 Freq: NEEDED Status: Active Protocol: Document 10/17/22 10:28 ES (Rec: 10/17/22 10:41 ES [id number]) Physical Therapy Current Condition Current Condition Evaluation Date 10/17/22 Treatment Diagnosis S/p lumbar fusion Onset Date 10/16/22 M3 PT-IP Subjective Start: 10/17/22 09:35 Freq: NEEDED Status: Active Protocol: Document 10/17/22 13:55 AB (Rec: 10/17/22 15:04 AB [id number]) Subjective Physical Therapy Visit Type Type Treatment Note Visit Start Time 13:55 Visit Stop Time 14:30 Total Visit Minutes 35 Number of TAR HEAT EXCHANGER CLEANER Visits 0 Physical Therapy Visit Comments Patient Comments agreeable to do PT Therapy Pain Assessment Pain When Pain Assessed At Rest Pain Present Pain Present Pain Reported Location back Intensity 2 Scale Used Numeric (0 - 10) Pain Management Techniques Distraction,Modification of Treatment,Timing of Activity with Medications M4 PT-IP Mobility and Gait Start: 10/17/22 09:35 Freq: NEEDED Status: Active Protocol: Document 10/17/22 13:55 AB (Rec: 10/17/22 15:04 AB [id number]) PT-Bed Mobility Assessment Rolling Type of Rolling Log Rolling Level of Assist Standby Assistance Sit to Supine Sit to Supine Standby Assistance,Bedrails PT-Transfer Assessment Sit to and From Stand Sit to and from Stand Standby Assistance,1 Person Assistance,Use of Upper Extremities Equipment Transfer Assistive Device Gait Belt,Front Wheeled Walker Orthotic/Prosthetic Devices or Brace: No Comments Mobility Comments pt just got up with NAC to use the toilet and sitting on EOB . agreed to do PT. pt able to recall his back precautions . Dispensed FWW for home use in preparation for possible d/ c tomorrow and pt wants to try his new FWW. adjusted FWW and pt signed papers. pt completed sit to stand SBA and ambulated using FWW ~ 225 ft SBA. cued for back precautions as pt tends to twist. pt ambulated back to his room. completed sit to supine log roll using bed rail SBA. pt stated that he has his head board to use as rail at home. positioned pt in bed. call light and table placed within reach. Gait Assessment Gait Gait Assistance Required: Standby Assistance Distance (Feet) 225 Able to Maintain Weight Bearing Status Yes During Gait Assistive Devices Assistive Device Gait Belt,Front Wheeled Walker Orthotic/Prosthetic Devices or Brace: No Factors Limiting Gait Function Factors Limiting Gait Function Decreased Activity Tolerance, Decreased Strength,Limited Range of Motion,Pain,Poor Balance,Poor Safety Awareness M5 PT-IP Objective Assessments Start: 10/17/22 09:35 Freq: NEEDED Status: Active Protocol: Document 10/17/22 10:28 ES (Rec: 10/17/22 10:41 ES [id number]) Orientation Orientation/Cognition Level of Alertness Alert Orientation Name,Age,Birthday,Month,Date, Year,Day of Week,Place, Situation Language Function Ability No Deficits Noted Safety Awareness Understands Safety Issues Memory Description No Deficits Noted Gross Range of Motion Upper Extremity ROM Assessment Within Functional Limits Lower Extremity ROM Assessment Within Functional Limits Strength Upper Extremity Strength Assessment Within Functional Limits Lower Extremity Strength Assessment Within Functional Limits Comments Strength Comments Decreased trunk strength Coordination Assessment Gross Coordination Gross Coordination WNL Sensation Assessment Sensation Gross Sensation WNL Comments Sensation Comments Denied numbness/tingling Muscle Tone Muscle Tone WNL Yes M6 PT-IP Treatment Start: 10/17/22 09:35 Freq: NEEDED Status: Active Protocol: Document 10/17/22 13:55 AB (Rec: 10/17/22 15:04 AB [id number]) Physical Therapy Treatment Education Education Provided Precautions,Safety Equipment Issued Equipment Type and Company FWW dispensed : [employer] M7 PT-IP Assessment and Plan Start: 10/17/22 09:35 Freq: NEEDED Status: Active Protocol: Document 10/17/22 13:55 AB (Rec: 10/17/22 15:04 AB [id number]) PT Summary Assessment and Plan Potential Rehabilitation Potential Good Summary Impairments Pain,ROM,Strength,Balance, Coordination,Sensation, Cognition,Bed Mobility, Transfers,Gait,Activity Tolerance Progress Towards Goals Progressing Toward Goals Assessment Summary pt progressing well with mobility using FWW SBA and tolerated ~ 225 ft of ambulation. pt plans to go home and spouse will be able to assist pt. pt may go home when medically stable. Goals Bed Mobility Goal Independent Transfer Goal Independent,Front Wheeled Walker Gait Goal Independent,Front Wheel Walker Gait Distance 250 Days to Meet Goals 5 Frequency of Treatment Frequency Of Treatment Twice a Day Treatment Plan Physical Therapy Treatment Plan Bed Mobility Training,Transfer Training,Gait Training, Therapeutic Exercise,Balance Retraining,Post Op Education, Discharge Planning,Hot or Cold Pack,Neuromuscular Re-ed Precautions Lumbar Precautions Log Roll,No Twisting,Limit Bending,Lifting Restriction of 10 lbs,Gait Belt above Incisional Area Recommendations To Nursing Amount of Assist Needed Standby Assistance Discharge Recommendations PT Discharge Recommendations Home with Assistance Transportation Needs at Discharge Private Vehicle
[2022-10-17 19:35] VITALS: BP 129/72; PULSE 88; RESP 21; TEMP 37.3; O2SAT 97
[2022-10-17] MEDS: SENNOSIDES 8.6 MG TABLET 17.2 MG PO (23:56)
[2022-10-18 00:07] VITALS: BP 128/70; PULSE 85; RESP 18; TEMP 36.4; O2SAT 98
[2022-10-18 05:46] VITALS: BP 114/61; PULSE 91; RESP 17; TEMP 36.9; O2SAT 95
[2022-10-18] MEDS: ACETAMINOPHEN 325 MG TABLET 650 MG PO (05:50)
[2022-10-18] MEDS: hydrOXYzine pamoate 25 MG CAPSULE PO (05:50)
[2022-10-18] MEDS: OXYCODONE IR 10 MG TABLET PO ×2 (05:51→09:23)
[2022-10-18] MEDS: MAGNESIUM HYDROXIDE 30 ML UDC PO (05:58)
--- NOTE | 2022-10-18 05:59 | PC.NURSE ---
2356: Pt requested to take Colace and Senna together with Tylenol, Vistaril, and Oxycodone in order to get uninterrupted hours of sleep.
--- NOTE | 2022-10-18 06:41 | P.DS_ITS ---
History of Present Illness History of Present Illness Date Patient Seen: 10/18/22 Time Patient Seen: 06:41 Chief complaint: INPT Narrative: Operative Date/Time/Diagnoses Date of procedure: 10/16/22 Time of procedure: 10:00 Pre-op diagnosis: 1. Lumbar spondylolisthesis 2. Lumbar spinal stenosis with neurogenic claudication L3-4, L4-5, L5-S1 Post-op diagnosis: same Procedure & Clinicians Procedure: 1. L3-4, L4-5, L5-S1 Postero-lateral and posterior interbody fusion 2. L3-4, L4-5, L5-S1 interbody cage placement. 3. L3-4, L4-5, L5-S1 decompressive laminectomy with bilateral facetecomies 4. L3-4, L4-5, L5-S1 Posterior segmental instrumentation 5. Marshall of bone marrow from iliac crest 6. Utilization of microsurgical technique and operating microscope 7. Utilization of robotic assisted navigation Same procedure as scheduled: Yes Indications: Patient has been having chronic back pain and worsening lumbar radiculopathy and symptoms neurogenic claudication. Patient failed multiple conservative management with worsening pain weakness and numbness in his lower extremity.? Patient has been having difficulty performing activity of daily living.? After discussing risks benefits of treatment options, patient elected proceed with surgery. Surgeon: Debra Stratton Trimming Department Blocker: Bhumi Yeh Click Yes if Unassisted: No Anesthesia Type: General Operative Notes Closure Type: primary Specimen(s): none sent Prosthetic devices, grafts, tissues, transplants, or devices: Globus CREO MIS screws, Rise cages Applied: catheter Estimated Blood Loss (mL): 150 Blood products transfused: none Discharge Providers Provider Date of admission: 10/16/22 08:09 Discharge Date: 10/18/22 Primary care physician: Gabriela Espinoza PA-C Consults: 10/16/22 16:35 Consult to Occupational Therapy Evaluate & Treat Comment: Physician Instructions: Evaluate and treat Consult to Physical Therapy Evaluate & Treat Comment: Physician Instructions: Evaluate and Treat 10/17/22 10:34 Consult to Home Health Routine Comment: Reason For Exam: FWW for home use Discharge provider: Bhumi Yeh PA-C Summary Hospital Course Discharge Diagnosis: Lumbar spondylolisthesis, Lumbar spinal stenosis with neurogenic claudication L3-4, L4-5, L5-S1, s/p L3-4, L4-5, and L5-S1 fusion Hospital Course: Mr Calzada's hospital course was unremarkable. On the morning of POD# 2, he was c/o constipation and wanted to go home after he had a bowel movement. His pain was well-controlled with oral medication; he denied LE pain. He was eating and voiding without difficulty. He was evaluated by PT throughout his stay and they felt he was safe for homegoing. Exam Vital Signs (past 8 hours): - 10/18/22 00:07 10/18/22 05:46 Temperature 97.5 F L 98.5 F Pulse Rate 85 91 H Respiratory Rate 18 17 Blood Pressure 128/70 114/61 Pulse Oximetry 98 95 Oxygen Flow Rate 0 0 Oxygen Delivery Method Nasal Cannula Oxygen Flow Rate 0 Narrative Exam Narrative: 5/5 strength in hip flexors, quadriceps, hamstrings, DF, PF, EHL bilaterally. Sensation to light touch intact in BLE. Calves soft, compressible, nontender and without palpable cords or masses. Dressings placed intraoperatively are CDI. Objective Labs 10/17/22 06:07 [facility] Medical History (Updated 10/17/22 @ 07:59 by Bhumi Yeh PA-C) History of COVID-19 (2021) MRSA (methicillin resistant staph aureus) culture positive (~12/2017) Osteoarthritis Splinter (~12/2017) Surgical History (Updated 10/17/22 @ 07:59 by Bhumi Yeh PA-C) History of arthroplasty of right knee History of incision and drainage (02/16/18) History of incision and drainage (06/25/18) History of total left knee replacement (09/30/18) S/P left unicompartmental knee replacement (~2014) Social History household members: spouse Smoking Status: Former smoker alcohol intake: current Discharge Assessment & Plan Assessment and Plan Assessment: Lumbar spondylolisthesis, Lumbar spinal stenosis with neurogenic claudication L3-4, L4-5, L5-S1, s/p L3-4, L4-5, and L5-S1 fusion Plan of Treatment: Enema, d/c home after bowel movement. Multimodal pain control, f/u in office in 2 weeks as scheduled. Discharge Plan Discharge Plan Patient Disposition: Home Discharge orders & Medications Prescriptions: New acetaminophen 325 mg Tablet 650 mg PO Q6H PRN (Reason: Fever/Mild Pain (1-3)) Qty: 240 0RF docusate sodium 100 mg Capsule 100 mg PO BID PRN (Reason: constipation) Qty: 60 1RF hydroxyzine pamoate 25 mg Capsule 25 mg PO Q4HR PRN (Reason: muscle spasm) Qty: 120 0RF oxycodone 5 mg tablet 5 mg PO Q4H PRN (Reason: pain (scale score 7-10)) Qty: 60 0RF Discontinued ibuprofen 200 mg Tablet 400 mg PO Q6H PRN (Reason: Pain) Follow up/Referrals: Gabriela Espinoza PA-C [Primary Care Provider] - Debra Stratton MD [Physician] - As previously scheduled (Follow up with Dr Stratton on 10/31/2022 @ 10:00 am at [facility] in [place].) Diet/Activity/Treatments Diet: Diet as Tolerated Activity: No deep bending or twisting at the waist. No lifting more than 10 pounds. Cold/Heat Therapy: Heating pad to low back as needed for pain. Skin/Wound/Dressing Care Report to your healthcare provider any signs of infection, such as:: chills, fever, night sweats, unusual drainage and unusual redness Dressing: May shower. Keep dressing as dry as possible. If dressing becomes w et or dirty, may remove and replace with clean, dry gauze. No bathing or otherwise soaking incisions. Do not apply any creams, lotions, or ointments to incisions. Visit Report/Discharge Packet Stand Alone Forms: Patient Portal/API, Stroke Signs & Symptoms, Surgery Disc harge Discharge Data Primary Care Provider: Gabriela Espinoza Quality VTE Deep Vein Thrombosis/Pulmonary Embolism Present on Admission: No
--- NOTE | 2022-10-18 08:39 | OT.IPNOTE ---
Pt being discharged today,not wanting to shower, able to finalize all OT needs and suggestions, No charge.
--- NOTE | 2022-10-18 08:43 | PT-IP ANOTE ---
Pt found up walking in hallway with spouse, reports no PT needs required, is to d/c at 9:30 this AM.
--- NOTE | 2022-10-18 08:57 | PC.NURSE ---
Day shift: Discharge instructions gone over with patient and patient's spouse. All questions answered and patient stated understanding. Medication prescriptions sent to [facility]. No PIV. Hardik Castañeda escorted patient off of unit with spouse after discharge. Patient has priority boarding pass for [facility]. Called JAZMYNE Yeh this AM for approval. She stated he required priority boarding and ok'ed using her medical license number.
== END 2022-10-18 09:42 | disposition home or self-care (01) | DRG 455 ==
PROVIDERS: Admitting Provider Orthopaedic Surgery Orthopaedic Surgery of the Spine; PCP Physician Assistant Medical; Referring Provider Orthopaedic Surgery Orthopaedic Surgery of the Spine; Visit Provider Orthopaedic Surgery Orthopaedic Surgery of the Spine
PROC: 0SG10AJ Fusion of 2 or more Lumbar Vertebral Joints with Interbody Fusion Device, Posterior Approach, Anterior Column, Open Approach (ICD-10-PCS; principal; 2022-10-16 10:15)
DX: M43.16 Spondylolisthesis, lumbar region (principal); M48.062 Spinal stenosis, lumbar region with neurogenic claudication; Z20.822 Contact with and (suspected) exposure to COVID-19; Z87.891 Personal history of nicotine dependence
CPT/HCPCS: 36415; 72100; 76000; 85014; 85018; 97116; 97161; 97165; 97530; 97535; C1831; C9290; J0171; J0330; J0690; J1100; J1170; J2405; J2704; J3010; J3410